=== PATIENT | male | born 1950 | race Caucasian/White ===

== ENCOUNTER 2019-10-02 05:48 | Inpatient (IN) | payer MEDICARE ==
[2019-10-02] MEDS ORDERED: ONDANSETRON HCL INJ/PF 4 MG/2 ML SDV IV ONE (06:19)
[2019-10-02] MEDS ORDERED: NORMAL SALINE 1000 ML 1,000 ML IV ONE ×3 (06:19→08:06)
[2019-10-02 06:42] LABS: ALBUMIN 4.6 g/dL (3.5-5.0); ALKALINE PHOSPHATASE 116 U/L (38-126); ASPARTATE AMINO TRANSFERASE 24 U/L (17-59); BILIRUBIN,DIRECT 0.2 mg/dL (0.0-0.4); BILIRUBIN,TOTAL 0.8 mg/dL (0.2-1.3); BLOOD UREA NITROGEN 37 mg/dL (7-20); CARBON DIOXIDE 17 mmol/L (22-30); CHLORIDE 94 mmol/L (98-107); CREATINE KINASE 305 U/L (55-170); POTASSIUM 5.2 mmol/L (3.6-5.0); TOTAL PROTEIN 8.1 g/dL (6.3-8.2)
[2019-10-02 06:46] LABS: ABSOLUTE BASOPHILS # (AUTO) 0.1 10^3/uL (0.0-0.2); ABSOLUTE LYMPHOCYTES (AUTO) 1.5 10^3/uL (0.5-4.7); ABSOLUTE MONOCYTES (AUTO) 1.4 10^3/uL (0.1-1.4); ABSOLUTE NEUT (AUTO) 13.9 10^3/uL (1.7-8.2); BASOPHILS % (AUTO) 0.5 % (0-2); HEMATOCRIT 48.6 % (37.9-51.0); HEMOGLOBIN 16.9 g/dL (13.5-17.0); LYMPHOCYTES % (AUTO) 8.9 % (13-45); MEAN CORPUSCULAR HEMOGLOBIN 31.3 pg (27.0-33.4); MEAN CORPUSCULAR HGB CONC 34.9 g/dL (32.0-36.0); MEAN CORPUSCULAR VOLUME 90 fl (80-97); MONOCYTES % (AUTO) 8.5 % (3-13); PLATELET COUNT 214 10^3/uL (150-450); RED BLOOD COUNT 5.42 10^6/uL (4.35-5.55); RED CELL DISTRIBUTION WIDTH 15.5 % (11.5-14.0); SEGMENTED NEUTROPHILS % (AUTO) 82.1 % (42-78); TOTAL CELLS COUNTED % (AUTO) 100 %
[2019-10-02 06:55] LABS: ANION GAP 26 (5-19)
[2019-10-02] MEDS ORDERED: INSULIN REG, HUMAN 100 UNIT/ML 3 ML VIAL (PYX) IV ONE (06:55)
[2019-10-02 06:56] LABS: GLUCOSE 468 mg/dL (75-110)
--- NOTE | 2019-10-02 07:28 | RADIOLOGY REPORT (SQ) ---
EXAM DESCRIPTION: CT HEAD WITHOUT IV CONTRAST COMPLETED DATE/TME: 10/02/2019 06:19 CLINICAL HISTORY: AMS. BGL 531 COMPARISON: None available TECHNIQUE: Axial CT of the head obtained from the skull apex to the skull base without contrast. FINDINGS: No acute intracranial hemorrhage identified. No mass, mass effect, shift of the midline, abnormal extra-axial fluid collection or CT evidence of acute ischemic change identified. The ventricular system and sulcal spaces are mildly enlarged compatible with mild cerebral atrophy. Scattered areas of hypodensity throughout the supratentorial white matter are nonspecific and may be related to chronic small vessel ischemic change. The visualized paranasal sinuses and the mastoids are clear. No skull fracture identified. Visualized orbits and globes are unremarkable. Atherosclerotic calcification of the intracranial internal carotid arteries. IMPRESSION: 1. No acute intracranial abnormality by CT criteria. This exam was performed according to our departmental dose-optimization program, which includes automated exposure control, adjustment of the mA and/or kV according to patient size and/or use of iterative reconstruction technique.
--- NOTE | 2019-10-02 08:12 | ER Document Report ---
ED General - General Chief Complaint: Low Back Pain Stated Complaint: BACK PAIN/VOMITING Time Seen by Provider: 10/02/19 06:01 Mode of Arrival: Medic Information source: Patient - HPI Notes: Patient presents by ambulance. Ambulance was called because patient was found down in his bedroom. Patient states that he fell approximately 4 days ago and is been unable to get up. The medic crew did state they found multiple jars of urine in the room. On arrival patient was noticed to also have some stool on him. He states he is not sure why he was unable to get up. He denies any vomiting. He states he has some pain in the right flank but otherwise denies any pain. This pain is constant and mild to moderate. It is an aching sensation. It is worse with touch summative left alone. It radiates slightly around to the right hip. He denies any extremity issues. He denies any cough cold congestion or fevers. He states he is not sure why he fell or why he was unable to get off the floor. - Related Data Allergies/Adverse Reactions: No Known Allergies Allergy (Verified 10/02/19 07:14) Past Medical History - General Information source: Patient - Social History Smoking Status: Former Smoker Frequency of alcohol use: None Drug Abuse: None Family History: Reviewed & Not Pertinent Patient has homicidal ideation: No Endocrine Medical History: Reports: Hx Diabetes Mellitus Type 2 Review of Systems - Review of Systems Constitutional: Malaise, Weakness. denies: Chills, Fever Cardiovascular: denies: Chest pain, Palpitations Respiratory: denies: Cough, Short of breath -: Yes All other systems reviewed and negative Physical Exam - Vital signs Vitals: Temp 97.5 F 10/02/19 05:49 Interpretation: Normal - General General appearance: Appears well, Alert - HEENT Head: Normocephalic, Atraumatic Eyes: Normal Pupils: PERRL - Respiratory Respiratory status: No respiratory distress Chest status: Nontender Breath sounds: Normal Chest palpation: Normal - Cardiovascular Rhythm: Regular Heart sounds: Normal auscultation Murmur: No - Abdominal Inspection: Normal Distension: No distension Bowel sounds: Normal Tenderness: Nontender Organomegaly: No organomegaly - Back Back: Tender, Wounds, Other - Patient has some tender abraded areas on the right flank - Extremities General upper extremity: Normal inspection, Nontender, Normal color, Normal ROM, Normal temperature General lower extremity: Normal inspection, Nontender, Normal color, Normal ROM, Normal temperature, Normal weight bearing. No: William's sign - Neurological Neuro grossly intact: Yes Cognition: Normal Orientation: AAOx4 Mk Coma Scale Eye Opening: Spontaneous Mk Coma Scale Verbal: Oriented [place] Coma Scale Motor: Obeys Commands [place] Coma Scale Total: 15 Speech: Normal Sensory: Normal Notes: Patient moves all extremities. However when I tried to ambulate patient he was unable to get out of bed to bear weight. He states that he feels too weak. - Psychological Associated symptoms: Normal affect, Normal mood - Skin Skin Temperature: Warm Skin Moisture: Dry Skin Color: Other - Patient has multiple abrasions on the right flank Course - Re-evaluation Re-evalutation: 10/02/19 08:10 Patient presents after being found down. CPK is not significantly elevated. He does appear moderately dehydrated. This is borne out by a high BUN creatinine and a slightly elevated potassium. He also has elevated glucose. His anion gap and bicarb are slightly down signifying some mild to moderate diabetic ketoacidosis. I have given the patient 2 L of fluid and am starting the third. I have also given the patient insulin. I have held off on an insulin drip for now as I thought the patient may be able to correct the gap without starting a drip but we will monitor this closely. - Vital Signs Vital signs: Temp Pulse Resp BP Pulse Ox 97.5 F 20 147/81 H 94 10/02/19 06:01 10/02/19 07:06 10/02/19 07:06 10/02/19 07:06 - Laboratory Result Diagrams: 10/02/19 06:10 10/02/19 06:10 Laboratory results interpreted by me: 10/02/19 10/02/19 10/02/19 06:04 06:10 06:10 WBC 17.0 H RDW 15.5 H Lymph % (Auto) 8.9 L Absolute Neuts (auto) 13.9 H Seg Neutrophils % 82.1 H Sodium 136.9 L Potassium 5.2 H Chloride 94 L Carbon Dioxide 17 L Anion Gap 26 H BUN 37 H Creatinine 1.79 H Est GFR ( Amer) 46 L Est GFR (MDRD) Non-Af 38 L Glucose 468 H* POC Glucose 449 H* Creatine Kinase 305 H 10/02/19 07:33 WBC RDW Lymph % (Auto) Absolute Neuts (auto) Seg Neutrophils % Sodium Potassium Chloride Carbon Dioxide Anion Gap BUN Creatinine Est GFR ( Amer) Est GFR (MDRD) Non-Af Glucose POC Glucose 430 H* Creatine Kinase - Diagnostic Test Radiology reviewed: Image reviewed, Reports reviewed - EKG Interpretation by Me EKG shows normal: Sinus rhythm Rate: Normal - 99 Rhythm: NSR Brickeys/QRS: No: Right axis deviation, Left axis deviation Discharge - Discharge Clinical Impression: Abrasions of multiple sites DKA (diabetic ketoacidoses) Qualifiers: Diabetes mellitus type: type 1 Diabetes mellitus complication detail: without coma Qualified Code(s): E10.10 - Type 1 diabetes mellitus with ketoacidosis without coma Condition: Serious Disposition: ADMITTED INPATIENT Admitting Provider: Florencio (Hospitalist) Unit Admitted: Medical Floor
[2019-10-02 08:20] LABS: ADD MANUAL MICROSCOPIC YES; APPEARANCE,URINE CLEAR; BILIRUBIN,URINE NEGATIVE (NEGATIVE); COLOR,URINE YELLOW; GLUCOSE, URINE >=1000 mg/dL (NEGATIVE); KETONES,URINE 300 mg/dL (NEGATIVE); LEUKOCYTE ESTERASE,URINE NEGATIVE (NEGATIVE); NITRITE,URINE NEGATIVE (NEGATIVE); PROTEIN,URINE 30 mg/dL (NEGATIVE); URINE SPECIFIC GRAVITY 1.027; UROBILINOGEN,URINE NEGATIVE mg/dL (<2.0)
[2019-10-02 08:21] LABS: WBC,URINE NONE SEEN /HPF
--- NOTE | 2019-10-02 08:39 | EKG REPORT ---
SEVERITY:- ABNORMAL ECG - SINUS RHYTHM NONSPECIFIC INTRAVENTRICULAR CONDUCTION DELAY : Confirmed by: Rex Mcdaniel 02-Oct-2019 08:39:13
[2019-10-02] MEDS ORDERED: IPRATROPIUM/ALBUTEROL 0.5-2.5 MG/3 ML AMPUL NEB PRN (08:48)
[2019-10-02] MEDS ORDERED: ONDANSETRON 4 MG TAB.RAPDIS PO PRN (08:48)
[2019-10-02] MEDS ORDERED: ACETAMINOPHEN 325 MG TABLET PO PRN (08:48)
[2019-10-02] MEDS ORDERED: DEXTROSE 40% GEL 15 GM TUBE PO PRN ×2 (08:48)
[2019-10-02] MEDS ORDERED: GLUCAGON,HUMAN RECOMB 1 MG INJ IM PRN (08:48)
[2019-10-02] MEDS ORDERED: OXYCODONE-ACETAMINOPHEN 5-325 MG TABLET PO PRN (08:48)
[2019-10-02] MEDS ORDERED: TEMAZEPAM 7.5 MG CAPSULE PO PRN (08:48)
[2019-10-02] MEDS ORDERED: DEXTROSE 50%-WATER 25 GM/50 ML DISP.SYRIN IV PRN ×2 (08:48)
--- NOTE | 2019-10-02 09:16 | PDOC H&P ---
History of Present Illness Admission Date/PCP: 10/02/19 08:28 Patient complains of: Falling 4 days ago and unable to get up History of Present Illness: ANTONIO SOLORIO is a 69 year old male Who presents to the emergency room with complaints of having falling about 4 days ago and is unable to get up. He states he lives with his brother however he did not contact his brother nor was a found until he called out to his brother today according to the patient. Patient did seem to be awake alert and oriented. Denies any loss of consciousness. He said he just felt weak and could not get up after falling. There is no head trauma. No nausea vomiting or diarrhea. He apparently was found in an unhealthy environment by EMS. He denies any chest pain abdominal pain or any other pertinent symptoms. Woke up to find the emergency room has really revealed a leukocytosis, hyperglycemia and very minimal rhabdomyolysis. He states that he obviously has not used his insulin since he fell. Patient also tells me that he moved here from [facility] about 2 years ago. He has not been hospitalized in this area since then. He says he normally manages by himself, ambulating the aid of a walker appears to be self- sufficient. He does have a dysarthria but denies any prior stroke he really was unable to provide any further medical insight except for the fact that he has diabetes. Past Medical History Endocrine Medical History: Reports: Diabetes Mellitus Type 2 Past Surgical History Past Surgical History: Reports: None Social History Information Source: Patient Smoking Status: Former Smoker Frequency of Alcohol Use: None - Advance Directive Resuscitation Status: Full Code Family History Family History: None, Reviewed & Not Pertinent Parental Family History Reviewed: Yes Children Family History Reviewed: Yes Sibling(s) Family History Reviewed.: Yes Medication/Allergy Allergies/Adverse Reactions: No Known Allergies Allergy (Verified 10/02/19 07:14) Review of Systems All systems: reviewed and no additional remarkable complaints except as stated Cardiovascular: ABSENT: chest pain, dyspnea on exertion, palpitations Respiratory: ABSENT: cough, dyspnea Gastrointestinal: ABSENT: abdominal pain, coffee ground emesis, diarrhea, vomiting Genitourinary: ABSENT: difficulty urinating, dysuria Neurological: PRESENT: weakness. ABSENT: convulsions, frequent falls Endocrine: ABSENT: polyphagia, polyuria Physical Exam Vital Signs: Temp Pulse Resp BP Pulse Ox 97.5 F 17 147/78 H 94 10/02/19 06:01 10/02/19 08:01 10/02/19 08:00 10/02/19 08:01 Intake & Output 10/01/19 10/02/19 10/03/19 06:59 06:59 06:59 Intake Total 1999 Balance 1999 Weight 99.7 kg General appearance: PRESENT: no acute distress, other - Somewhat chronically ill looking but not toxic Head exam: PRESENT: atraumatic, normocephalic Eye exam: PRESENT: conjunctiva pink, EOMI, PERRLA. ABSENT: scleral icterus Mouth exam: PRESENT: tongue midline Neck exam: ABSENT: carotid bruit, JVD, lymphadenopathy, thyromegaly Respiratory exam: PRESENT: clear to auscultation sunitha, unlabored. ABSENT: rales, rhonchi, wheezes Cardiovascular exam: PRESENT: RRR, +S1, +S2. ABSENT: diastolic murmur, rubs, systolic murmur Pulses: PRESENT: normal dorsalis pedis pul Vascular exam: PRESENT: normal capillary refill GI/Abdominal exam: PRESENT: normal bowel sounds, soft. ABSENT: distended, guarding, mass, organolmegaly, rebound, tenderness Rectal exam: PRESENT: deferred Gentrourinary exam: PRESENT: indwelling catheter. ABSENT: scrotal swelling Extremities exam: PRESENT: full ROM. ABSENT: calf tenderness, clubbing, pedal edema Musculoskeletal exam: PRESENT: full ROM Neurological exam: PRESENT: alert, awake, oriented to person, oriented to place, oriented to time, oriented to situation, other - Slow verbal response with mild dysarthria. ABSENT: motor sensory deficit Psychiatric exam: PRESENT: appropriate affect, normal mood. ABSENT: homicidal ideation, suicidal ideation Skin exam: PRESENT: dry, intact, rash - Bilateral lower extremities chronic, warm. ABSENT: cyanosis Results Laboratory Results: 10/02/19 06:10 10/02/19 06:10 10/02/19 10/02/19 10/02/19 06:10 06:10 07:40 WBC 17.0 H RBC 5.42 Hgb 16.9 Hct 48.6 MCV 90 MCH 31.3 MCHC 34.9 RDW 15.5 H Plt Count 214 Seg Neutrophils % 82.1 H Sodium 136.9 L Potassium 5.2 H Chloride 94 L Carbon Dioxide 17 L Anion Gap 26 H BUN 37 H Creatinine 1.79 H Est GFR ( Amer) 46 L Glucose 468 H* Calcium 10.0 Total Bilirubin 0.8 AST 24 Alkaline Phosphatase 116 Total Protein 8.1 Albumin 4.6 Urine Color YELLOW Urine Appearance CLEAR Urine pH 5.0 Ur Specific Calvin 1.027 Urine Protein 30 H Urine Glucose (UA) >=1000 H Urine Ketones 300 H Urine Blood MODERATE H Urine Nitrite NEGATIVE Ur Leukocyte Esterase NEGATIVE 10/02/19 10/02/19 06:10 06:10 Creatine Kinase 305 H Troponin I < 0.012 EKG Comments: Sinus rhythm with no acute EKG changes Impressions: Head CT 10/02/19 06:19 IMPRESSION: 1. No acute intracranial abnormality by CT criteria. This exam was performed according to our departmental dose-optimization program, which includes automated exposure control, adjustment of the mA and/or kV according to patient size and/or use of iterative reconstruction technique. Assessment and Plan - Diagnosis (1) DKA (diabetic ketoacidoses) Qualifiers: Diabetes mellitus type: type 2 Diabetes mellitus complication detail: without coma Qualified Code(s): E11.10 - Type 2 diabetes mellitus with ketoacidosis without coma Is this a current diagnosis for this admission?: Yes Plan: Patient does have a mild acidosis, with hyperglycemia in the setting of type 2 diabetes mellitus. Does admit to not using his insulin obviously because he was down. Patient was given insulin IV in the emergency room and at this point I will just place him on sliding scale with some Lantus. We will repeat his BMP in a few hours and adjust his regimen as indicated (2) SIRS (systemic inflammatory response syndrome) Is this a current diagnosis for this admission?: Yes Plan: He does have a leukocytosis however I see no evidence of an acute infection at this time. A chest x-ray will be obtained but clinical exam reveals no evidence of pneumonia. I will defer starting on any antibiotics as of now. Urinalysis was negative (3) Hyperkalemia Is this a current diagnosis for this admission?: Yes Plan: This is consistent with his DKA. This should resolve with treatment - Plan Summary Summary: He will likely need physical therapy and possible rehabilitation but will wait for improvement before starting PT hopefully in a.m. - Time Time Spent with patient: 25-34 minutes Medications reviewed and adjusted accordingly: Yes Anticipated discharge: SNF Within: within 72 hours
[2019-10-02] MEDS ORDERED: FAMOTIDINE 20 MG TABLET PO SCH (10:00)
[2019-10-02] MEDS ORDERED: INSULIN GLARGINE,HUM.REC.ANLOG 1,000 UNIT/10 ML VIAL SUBCUT SCH (10:00)
[2019-10-02] MEDS: DOCUSATE SODIUM 100 MG CAPSULE PO SCH (10:06)
[2019-10-02] MEDS: ENOXAPARIN SODIUM INJ 40 MG/0.4 ML DISP.SYRIN SUBCUT SCH (10:07)
[2019-10-02] MEDS: FAMOTIDINE 20 MG TABLET PO SCH (10:07)
[2019-10-02] MEDS: NORMAL SALINE 1000 ML 1,000 ML IV PRN ×2 (10:09→18:00)
--- NOTE | 2019-10-02 10:48 | RADIOLOGY REPORT (SQ) ---
EXAM DESCRIPTION: CHEST SINGLE VIEW IMAGES COMPLETED DATE/TIME: 10/02/2019 10:17 am REASON FOR STUDY: Fall, ?PNA COMPARISON: None. EXAM PARAMETERS: NUMBER OF VIEWS: One view. TECHNIQUE: An AP view of the chest was obtained. RADIATION DOSE: NA LIMITATIONS: None. FINDINGS: LUNGS AND PLEURA: No consolidation, pleural effusion or pneumothorax. MEDIASTINUM AND HILAR STRUCTURES: No mediastinal or hilar contour abnormality. HEART AND VASCULAR STRUCTURES: The cardiac silhouette and pulmonary vasculature are within normal gregorio its. BONES: No acute findings. HARDWARE: None in the chest. OTHER: No other finding. IMPRESSION: No acute cardiopulmonary process. TECHNICAL DOCUMENTATION: JOB ID: [id number] 2010 [employer]- All Rights Reserved Reading location - IP/workstation name: [email or web address]
[2019-10-02] MEDS: INSULIN REG, HUMAN 100 UNIT/ML 3 ML VIAL (PYX) SUBCUT SCH ×3 (12:04→21:43)
[2019-10-02 14:16] LABS: BLOOD UREA NITROGEN 33 mg/dL (7-20); CALCIUM 8.8 mg/dL (8.4-10.2); GLUCOSE 336 mg/dL (75-110); POTASSIUM 4.8 mmol/L (3.6-5.0)
[2019-10-02 14:18] LABS: ANION GAP 21 (5-19); CARBON DIOXIDE 13 mmol/L (22-30); CHLORIDE 104 mmol/L (98-107)
[2019-10-02] MEDS ORDERED: INSULIN LISPRO 100 UNIT/ML 3 ML VIAL SUBCUT ONE (17:00)
[2019-10-02] MEDS: DOXAZOSIN MESYLATE 2 MG TABLET PO SCH (21:41)
[2019-10-02] MEDS: SIMVASTATIN 40 MG TABLET PO SCH (21:41)
[2019-10-02] MEDS: GABAPENTIN 100 MG CAPSULE PO SCH (21:41)
[2019-10-02] MEDS: INSULIN GLARGINE,HUM.REC.ANLOG 1,000 UNIT/10 ML VIAL SUBCUT SCH (21:42)
[2019-10-02 21:48] LABS: ANION GAP 16 (5-19); BLOOD UREA NITROGEN 27 mg/dL (7-20); CALCIUM 8.3 mg/dL (8.4-10.2); CARBON DIOXIDE 15 mmol/L (22-30); CHLORIDE 105 mmol/L (98-107); GLUCOSE 185 mg/dL (75-110); POTASSIUM 4.6 mmol/L (3.6-5.0)
[2019-10-02] MEDS ORDERED: (PENDING PHARMACY ID) (Terazosin Hcl [Terazosin Hcl] 2 MG) PO SCH (22:00)
[2019-10-03] MEDS: NORMAL SALINE 1000 ML 1,000 ML IV PRN ×3 (02:13→23:16)
[2019-10-03 06:55] LABS: ABSOLUTE BASOPHILS # (AUTO) 0.1 10^3/uL (0.0-0.2); ABSOLUTE EOSINOPHILS # (AUTO) 0.3 10^3/uL (0.0-0.6); ABSOLUTE LYMPHOCYTES (AUTO) 1.4 10^3/uL (0.5-4.7); ABSOLUTE MONOCYTES (AUTO) 1.3 10^3/uL (0.1-1.4); ABSOLUTE NEUT (AUTO) 9.8 10^3/uL (1.7-8.2); BASOPHILS % (AUTO) 0.7 % (0-2); HEMATOCRIT 38.5 % (37.9-51.0); LYMPHOCYTES % (AUTO) 10.8 % (13-45); MEAN CORPUSCULAR HEMOGLOBIN 31.6 pg (27.0-33.4); MEAN CORPUSCULAR HGB CONC 35.7 g/dL (32.0-36.0); MEAN CORPUSCULAR VOLUME 88 fl (80-97); MONOCYTES % (AUTO) 10.5 % (3-13); PLATELET COUNT 163 10^3/uL (150-450); RED BLOOD COUNT 4.35 10^6/uL (4.35-5.55); TOTAL CELLS COUNTED % (AUTO) 100 %; WHITE BLOOD COUNT 12.8 10^3/uL (4.0-10.5)
[2019-10-03 06:57] LABS: HEMOGLOBIN 13.8 g/dL (13.5-17.0)
[2019-10-03 07:15] LABS: ANION GAP 12 (5-19); BLOOD UREA NITROGEN 20 mg/dL (7-20); CALCIUM 8.1 mg/dL (8.4-10.2); CARBON DIOXIDE 19 mmol/L (22-30); CHLORIDE 106 mmol/L (98-107); GLUCOSE 142 mg/dL (75-110); PHOSPHORUS 2.7 mg/dL (2.5-4.5); POTASSIUM 3.9 mmol/L (3.6-5.0)
[2019-10-03] MEDS: INSULIN REG, HUMAN 100 UNIT/ML 3 ML VIAL (PYX) SUBCUT SCH ×4 (07:35→21:20)
[2019-10-03] MEDS: ENOXAPARIN SODIUM INJ 40 MG/0.4 ML DISP.SYRIN SUBCUT SCH (09:29)
[2019-10-03] MEDS: INSULIN GLARGINE,HUM.REC.ANLOG 1,000 UNIT/10 ML VIAL SUBCUT SCH ×2 (09:29→21:24)
[2019-10-03] MEDS: DOCUSATE SODIUM 100 MG CAPSULE PO SCH (09:30)
[2019-10-03] MEDS: AMLODIPINE BESYLATE 10 MG TABLET PO SCH (09:30)
[2019-10-03] MEDS: ATENOLOL 50 MG TABLET PO SCH (09:30)
[2019-10-03] MEDS: FAMOTIDINE 20 MG TABLET PO SCH (09:30)
[2019-10-03] MEDS: ASPIRIN 81 MG TABLET, CHEWABLE PO SCH (09:30)
[2019-10-03] MEDS: GABAPENTIN 100 MG CAPSULE PO SCH ×2 (09:31→21:11)
[2019-10-03] MEDS: LISINOPRIL 5 MG TABLET PO SCH (09:31)
[2019-10-03] MEDS: CALCIUM CARBONATE 600 MG/VITAMIN D3 400 UNIT TABLET PO SCH (09:31)
[2019-10-03] MEDS: CHOLECALCIFEROL (D3) 1,000 UNIT (25 MCG) TABLET PO SCH (09:31)
[2019-10-03] MEDS ORDERED: (PENDING PHARMACY ID) (Calcium Carbonate/Vitamin D3 [Calcium 500-Vit D3 200 Caplet] 1 TAB) PO SCH (10:00)
[2019-10-03] MEDS ORDERED: (PENDING PHARMACY ID) (Cholecalciferol (Vitamin D3) [Vitamin D3] 1,000 UNIT) PO SCH (10:00)
[2019-10-03] MEDS ORDERED: (PENDING PHARMACY ID) (Atenolol [Atenolol] 100 MG) PO SCH (10:00)
[2019-10-03] MEDS ORDERED: ONDANSETRON 4 MG TAB.RAPDIS PO PRN (11:00)
--- NOTE | 2019-10-03 11:44 | PDOC PROGRESS REPORT ---
Subjective Progress Note for:: 10/03/19 Subjective:: Patient is somewhat lethargic but easily arousable and he responds appropriately to questions. He did have a CT scan of the brain done yesterday which showed no significant findings. Blood sugar is better controlled also_check of the random blood sugar today was 193 Reason For Visit: HYPERGLYCEMIA,FALL Physical Exam Vital Signs: Temp Pulse Resp BP Pulse Ox 98.1 F 76 16 125/57 L 93 10/03/19 07:19 10/03/19 09:24 10/03/19 09:24 10/03/19 07:19 10/03/19 09:24 Intake & Output 10/02/19 10/03/19 10/04/19 06:59 06:59 06:59 Intake Total 5776 Balance 5776 Weight 99.7 kg 100 kg General appearance: PRESENT: no acute distress, well-developed, well-nourished Head exam: PRESENT: atraumatic, normocephalic Eye exam: PRESENT: conjunctiva pink, EOMI, PERRLA. ABSENT: scleral icterus Mouth exam: PRESENT: tongue midline Neck exam: ABSENT: carotid bruit, JVD, lymphadenopathy, thyromegaly Respiratory exam: PRESENT: clear to auscultation sunitha, unlabored. ABSENT: rales, rhonchi, wheezes Cardiovascular exam: PRESENT: RRR. ABSENT: diastolic murmur, rubs, systolic murmur Pulses: PRESENT: normal dorsalis pedis pul Vascular exam: PRESENT: normal capillary refill GI/Abdominal exam: PRESENT: normal bowel sounds, soft. ABSENT: distended, guarding, mass, organolmegaly, rebound, tenderness Rectal exam: PRESENT: deferred Extremities exam: PRESENT: full ROM. ABSENT: calf tenderness, clubbing, pedal edema Neurological exam: PRESENT: oriented to place, oriented to time, oriented to situation, other - Lethargic but easily arousable mild dysarthria Psychiatric exam: PRESENT: appropriate affect, normal mood. ABSENT: homicidal ideation, suicidal ideation Skin exam: PRESENT: dry, intact, warm. ABSENT: cyanosis, rash Results Laboratory Results: 10/03/19 06:34 10/03/19 06:34 10/02/19 10/02/19 10/03/19 13:40 21:15 06:34 WBC 12.8 H RBC 4.35 Hgb 13.8 D Hct 38.5 MCV 88 MCH 31.6 MCHC 35.7 RDW 15.0 H Plt Count 163 Seg Neutrophils % 76.0 Sodium 138.2 135.8 L Potassium 4.8 4.6 Chloride 104 105 Carbon Dioxide 13 L 15 L Anion Gap 21 H 16 BUN 33 H 27 H Creatinine 1.32 H 1.13 Est GFR ( Amer) > 60 > 60 Glucose 336 H 185 H Calcium 8.8 8.3 L Phosphorus Magnesium TSH 10/03/19 10/03/19 06:34 06:34 WBC RBC Hgb Hct MCV MCH MCHC RDW Plt Count Seg Neutrophils % Sodium 136.8 L Potassium 3.9 Chloride 106 Carbon Dioxide 19 L Anion Gap 12 BUN 20 Creatinine 1.11 Est GFR ( Amer) > 60 Glucose 142 H Calcium 8.1 L Phosphorus 2.7 Magnesium 2.3 TSH 0.74 10/02/19 10/02/19 06:10 06:10 Creatine Kinase 305 H Troponin I < 0.012 Impressions: Head CT 10/02/19 06:19 IMPRESSION: 1. No acute intracranial abnormality by CT criteria. This exam was performed according to our departmental dose-optimization program, which includes automated exposure control, adjustment of the mA and/or kV according to patient size and/or use of iterative reconstruction technique. Chest X-Ray 10/02/19 08:58 IMPRESSION: No acute cardiopulmonary process. Assessment and Plan - Diagnosis (1) DKA (diabetic ketoacidoses) Qualifiers: Diabetes mellitus type: type 2 Diabetes mellitus complication detail: [facility] coma Qualified Code(s): E11.10 - Type 2 diabetes mellitus with ketoacidosis without coma Is this a current diagnosis for this admission?: Yes Plan: Resolved. Will continue with IV fluids although I will reduce the dose. We will continue with subcu insulin Hemoglobin A1c was 13.9 reflecting a poorly controlled type 2 diabetes mellitus. (2) SIRS (systemic inflammatory response syndrome) Is this a current diagnosis for this admission?: Yes Plan: White count is down to 12.7. There is still no source of any specific infection. Patient is on no antibiotics (3) Hyperkalemia Is this a current diagnosis for this admission?: Yes Plan: Resolved - Plan Summary Summary: Physical therapy has been ordered. Patient will likely need rehab at discharge so case management will also be consulted - Inpatient Certification Based on my medical assessment, after consideration of the patient's comorbidities, presenting symptoms, or acuity I expect that the services needed warrant INPATIENT care.: Yes Medical Necessity: Significant Comorbidiites Make Outpatient Treatment Too Risky, Risk of Complication if Not Cared For in Hospital
[2019-10-03] MEDS: DOXAZOSIN MESYLATE 2 MG TABLET PO SCH (21:10)
[2019-10-03] MEDS: SIMVASTATIN 40 MG TABLET PO SCH (21:10)
[2019-10-04 06:11] LABS: ABSOLUTE BASOPHILS # (AUTO) 0.1 10^3/uL (0.0-0.2); ABSOLUTE EOSINOPHILS # (AUTO) 0.5 10^3/uL (0.0-0.6); ABSOLUTE LYMPHOCYTES (AUTO) 1.1 10^3/uL (0.5-4.7); ABSOLUTE NEUT (AUTO) 7.9 10^3/uL (1.7-8.2); BASOPHILS % (AUTO) 1.1 % (0-2); EOSINOPHILS % (AUTO) 4.8 % (0-6); HEMATOCRIT 36.6 % (37.9-51.0); HEMOGLOBIN 13.3 g/dL (13.5-17.0); LYMPHOCYTES % (AUTO) 10.5 % (13-45); MEAN CORPUSCULAR HGB CONC 36.3 g/dL (32.0-36.0); MEAN CORPUSCULAR VOLUME 88 fl (80-97); MONOCYTES % (AUTO) 9.6 % (3-13); PLATELET COUNT 131 10^3/uL (150-450); RED BLOOD COUNT 4.15 10^6/uL (4.35-5.55); RED CELL DISTRIBUTION WIDTH 15.1 % (11.5-14.0); TOTAL CELLS COUNTED % (AUTO) 100 %; WHITE BLOOD COUNT 10.7 10^3/uL (4.0-10.5)
[2019-10-04 06:33] LABS: ANION GAP 12 (5-19); BLOOD UREA NITROGEN 16 mg/dL (7-20); CALCIUM 7.9 mg/dL (8.4-10.2); CARBON DIOXIDE 18 mmol/L (22-30); CHLORIDE 106 mmol/L (98-107); GLUCOSE 184 mg/dL (75-110); POTASSIUM 3.7 mmol/L (3.6-5.0)
[2019-10-04] MEDS: INSULIN REG, HUMAN 100 UNIT/ML 3 ML VIAL (PYX) SUBCUT SCH ×4 (07:50→23:36)
[2019-10-04] MEDS: CHOLECALCIFEROL (D3) 1,000 UNIT (25 MCG) TABLET PO SCH (11:31)
[2019-10-04] MEDS: INSULIN GLARGINE,HUM.REC.ANLOG 1,000 UNIT/10 ML VIAL SUBCUT SCH ×2 (11:31→23:36)
[2019-10-04] MEDS: FAMOTIDINE 20 MG TABLET PO SCH (11:31)
[2019-10-04] MEDS: ENOXAPARIN SODIUM INJ 40 MG/0.4 ML DISP.SYRIN SUBCUT SCH (11:31)
[2019-10-04] MEDS: CALCIUM CARBONATE 600 MG/VITAMIN D3 400 UNIT TABLET PO SCH (11:31)
[2019-10-04] MEDS: ASPIRIN 81 MG TABLET, CHEWABLE PO SCH (11:31)
[2019-10-04] MEDS: DOCUSATE SODIUM 100 MG CAPSULE PO SCH (11:31)
[2019-10-04] MEDS: GABAPENTIN 100 MG CAPSULE PO SCH ×2 (11:31→23:37)
--- NOTE | 2019-10-04 14:08 | PDOC PROGRESS REPORT ---
Subjective Progress Note for:: 10/04/19 Subjective:: Patient was rude and uncooperative today. I try to ask him some questions but did not provide any satisfactory answer Reason For Visit: HYPERGLYCEMIA,FALL Physical Exam Vital Signs: Temp Pulse Resp BP Pulse Ox 98.2 F 59 L 16 96/42 L 94 10/04/19 11:18 10/04/19 11:18 10/04/19 11:18 10/04/19 11:18 10/04/19 11:18 Intake & Output 10/03/19 10/04/19 10/05/19 06:59 06:59 06:59 Intake Total 5776 2220 120 Output Total 500 Balance 5776 1720 120 Weight 100 kg 100 kg General appearance: PRESENT: no acute distress Neck exam: ABSENT: JVD, tenderness Respiratory exam: PRESENT: clear to auscultation sunitha, rhonchi GI/Abdominal exam: PRESENT: soft Rectal exam: PRESENT: deferred Psychiatric exam: ABSENT: appropriate affect Results Laboratory Results: 10/04/19 05:25 10/04/19 05:25 10/04/19 10/04/19 05:25 05:25 WBC 10.7 H RBC 4.15 L Hgb 13.3 L Hct 36.6 L MCV 88 MCH 32.0 MCHC 36.3 H RDW 15.1 H Plt Count 131 L Seg Neutrophils % 74.0 Sodium 135.9 L Potassium 3.7 Chloride 106 Carbon Dioxide 18 L Anion Gap 12 BUN 16 Creatinine 0.99 Est GFR ( Amer) > 60 Glucose 184 H Calcium 7.9 L 10/02/19 10/02/19 06:10 06:10 Creatine Kinase 305 H Troponin I < 0.012 Impressions: Head CT 10/02/19 06:19 IMPRESSION: 1. No acute intracranial abnormality by CT criteria. This exam was performed according to our departmental dose-optimization program, which includes automated exposure control, adjustment of the mA and/or kV according to patient size and/or use of iterative reconstruction technique. Chest X-Ray 10/02/19 08:58 IMPRESSION: No acute cardiopulmonary process. Assessment and Plan - Diagnosis (1) DKA (diabetic ketoacidoses) Qualifiers: Diabetes mellitus type: type 2 Diabetes mellitus complication detail: without coma Qualified Code(s): E11.10 - Type 2 diabetes mellitus with ketoacidosis without coma Is this a current diagnosis for this admission?: Yes Plan: Resolved (2) SIRS (systemic inflammatory response syndrome) Is this a current diagnosis for this admission?: Yes Plan: White count continues to decline. Still no evidence of any infection. Is on no antibiotics (3) Hyperkalemia Is this a current diagnosis for this admission?: Yes Plan: Resolved - Plan Summary Summary: Plan is for discharge to halfway facility as soon as a bed is available. A COVID 19 test has been ordered preparation for [facility] discharge
[2019-10-04] MEDS: AMLODIPINE BESYLATE 10 MG TABLET PO SCH (15:07)
[2019-10-04] MEDS: ATENOLOL 50 MG TABLET PO SCH (16:54)
[2019-10-04] MEDS: LISINOPRIL 5 MG TABLET PO SCH (16:54)
[2019-10-04] MEDS: SIMVASTATIN 40 MG TABLET PO SCH (23:37)
[2019-10-04] MEDS: DOXAZOSIN MESYLATE 2 MG TABLET PO SCH (23:37)
[2019-10-05] MEDS: NORMAL SALINE 1000 ML 1,000 ML IV PRN (07:05)
[2019-10-05] MEDS: INSULIN REG, HUMAN 100 UNIT/ML 3 ML VIAL (PYX) SUBCUT SCH ×4 (07:52→22:12)
[2019-10-05] MEDS: ATENOLOL 50 MG TABLET PO SCH (10:59)
[2019-10-05] MEDS: CHOLECALCIFEROL (D3) 1,000 UNIT (25 MCG) TABLET PO SCH (10:59)
[2019-10-05] MEDS: ENOXAPARIN SODIUM INJ 40 MG/0.4 ML DISP.SYRIN SUBCUT SCH (10:59)
[2019-10-05] MEDS: GABAPENTIN 100 MG CAPSULE PO SCH ×2 (10:59→22:11)
[2019-10-05] MEDS: CALCIUM CARBONATE 600 MG/VITAMIN D3 400 UNIT TABLET PO SCH (10:59)
[2019-10-05] MEDS: LISINOPRIL 5 MG TABLET PO SCH (10:59)
[2019-10-05] MEDS: ASPIRIN 81 MG TABLET, CHEWABLE PO SCH (10:59)
[2019-10-05] MEDS: DOCUSATE SODIUM 100 MG CAPSULE PO SCH (10:59)
[2019-10-05] MEDS: INSULIN GLARGINE,HUM.REC.ANLOG 1,000 UNIT/10 ML VIAL SUBCUT SCH ×2 (11:00→22:12)
[2019-10-05] MEDS: FAMOTIDINE 20 MG TABLET PO SCH (11:06)
--- NOTE | 2019-10-05 15:14 | PDOC PROGRESS REPORT ---
Subjective Progress Note for:: 10/05/19 Subjective:: Patient was rude and uncooperative today. I try to ask him some questions but did not provide any satisfactory answer October 04 patient continues to be uncooperative Reason For Visit: HYPERGLYCEMIA,FALL Physical Exam Vital Signs: Temp Pulse Resp BP Pulse Ox 98.2 F 63 16 105/58 L 90 L 10/05/19 12:29 10/05/19 12:29 10/05/19 12:29 10/05/19 12:29 10/05/19 12:29 Intake & Output 10/04/19 10/05/19 10/06/19 06:59 06:59 06:59 Intake Total 2220 1120 345 Output Total 500 Balance 1720 1120 345 Weight 100 kg 100 kg General appearance: PRESENT: no acute distress, other - Uncooperative Respiratory exam: PRESENT: crackles, rhonchi Cardiovascular exam: PRESENT: +S1, +S2 GI/Abdominal exam: PRESENT: soft Neurological exam: PRESENT: alert, awake Results Laboratory Results: 10/04/19 05:25 10/04/19 05:25 10/02/19 10/02/19 06:10 06:10 Creatine Kinase 305 H Troponin I < 0.012 Impressions: Head CT 10/02/19 06:19 IMPRESSION: 1. No acute intracranial abnormality by CT criteria. This exam was performed according to our departmental dose-optimization program, which includes automated exposure control, adjustment of the mA and/or kV according to patient size and/or use of iterative reconstruction technique. Chest X-Ray 10/02/19 08:58 IMPRESSION: No acute cardiopulmonary process. Assessment and Plan - Diagnosis (1) DKA (diabetic ketoacidoses) Qualifiers: Diabetes mellitus type: type 2 Diabetes mellitus complication detail: without coma Qualified Code(s): E11.10 - Type 2 diabetes mellitus with ketoacidosis without coma Is this a current diagnosis for this admission?: Yes Plan: Resolved. Patient now awaiting transfer to alf (2) SIRS (systemic inflammatory response syndrome) Is this a current diagnosis for this admission?: Yes (3) Hyperkalemia Is this a current diagnosis for this admission?: Yes Plan: Resolved (4) Physical deconditioning Is this a current diagnosis for this admission?: Yes Plan: Patient will need a stent at rehab to get his strength back. Plan is to discharge hopefully on Monday. Is otherwise hemodynamically stable - Plan Summary Summary: Plan is for discharge to snf facility as soon as a bed is available. A COVID 19 test has been ordered preparation for alf discharge - Time Anticipated discharge: Acute Rehab Within: within 48 hours, when bed available
[2019-10-05] MEDS: DOXAZOSIN MESYLATE 2 MG TABLET PO SCH (22:10)
[2019-10-05] MEDS: SIMVASTATIN 40 MG TABLET PO SCH (22:11)
[2019-10-05] MEDS ORDERED: DOCUSATE SODIUM 100 MG CAPSULE PO ONE (23:59)
[2019-10-06] MEDS: NORMAL SALINE 1000 ML 1,000 ML IV PRN (04:55)
[2019-10-06] MEDS: INSULIN REG, HUMAN 100 UNIT/ML 3 ML VIAL (PYX) SUBCUT SCH ×4 (08:05→21:43)
[2019-10-06] MEDS: CHOLECALCIFEROL (D3) 1,000 UNIT (25 MCG) TABLET PO SCH (10:04)
[2019-10-06] MEDS: DOCUSATE SODIUM 100 MG CAPSULE PO SCH ×2 (10:06→17:33)
[2019-10-06] MEDS: ATENOLOL 50 MG TABLET PO SCH (10:06)
[2019-10-06] MEDS: ASPIRIN 81 MG TABLET, CHEWABLE PO SCH (10:06)
[2019-10-06] MEDS: CALCIUM CARBONATE 600 MG/VITAMIN D3 400 UNIT TABLET PO SCH (10:06)
[2019-10-06] MEDS: GABAPENTIN 100 MG CAPSULE PO SCH ×2 (10:06→21:42)
[2019-10-06] MEDS: LISINOPRIL 5 MG TABLET PO SCH (10:06)
[2019-10-06] MEDS: FAMOTIDINE 20 MG TABLET PO SCH (10:06)
[2019-10-06] MEDS: INSULIN GLARGINE,HUM.REC.ANLOG 1,000 UNIT/10 ML VIAL SUBCUT SCH ×2 (10:06→21:43)
[2019-10-06] MEDS: ENOXAPARIN SODIUM INJ 40 MG/0.4 ML DISP.SYRIN SUBCUT SCH (11:43)
--- NOTE | 2019-10-06 14:15 | PDOC PROGRESS REPORT ---
Subjective Progress Note for:: 10/06/19 Subjective:: Patient was rude and uncooperative today. I try to ask him some questions but did not provide any satisfactory answer October 04 patient continues to be uncooperative October 05 patient's attitude is unchanged. No new complaints Reason For Visit: HYPERGLYCEMIA,FALL Physical Exam Vital Signs: Temp Pulse Resp BP Pulse Ox 99.2 F 78 20 104/49 L 93 10/06/19 08:00 10/06/19 08:00 10/06/19 08:00 10/06/19 08:00 10/06/19 08:00 Intake & Output 10/05/19 10/06/19 10/07/19 06:59 06:59 06:59 Intake Total 1120 1570 Balance 1120 1570 Weight 100 kg 110.1 kg General appearance: PRESENT: no acute distress, well-nourished Head exam: PRESENT: atraumatic, normocephalic Eye exam: PRESENT: conjunctiva pink, PERRLA. ABSENT: scleral icterus Ear exam: PRESENT: normal external ear exam Neck exam: ABSENT: carotid bruit, JVD, lymphadenopathy, thyromegaly Respiratory exam: PRESENT: clear to auscultation sunitha. ABSENT: rales, rhonchi, wheezes Cardiovascular exam: PRESENT: RRR, +S1, +S2. ABSENT: diastolic murmur, rubs, systolic murmur Vascular exam: PRESENT: normal capillary refill GI/Abdominal exam: PRESENT: normal bowel sounds, soft. ABSENT: distended, guarding, mass, organolmegaly, rebound, tenderness Rectal exam: PRESENT: deferred Extremities exam: PRESENT: full ROM. ABSENT: calf tenderness, clubbing, pedal edema Neurological exam: PRESENT: alert, awake, oriented to person, oriented to situation Psychiatric exam: ABSENT: homicidal ideation, suicidal ideation Skin exam: PRESENT: dry, intact, warm. ABSENT: cyanosis, rash Results Laboratory Results: 10/04/19 05:25 10/04/19 05:25 10/02/19 10/02/19 06:10 06:10 Creatine Kinase 305 H Troponin I < 0.012 Impressions: Head CT 10/02/19 06:19 IMPRESSION: 1. No acute intracranial abnormality by CT criteria. This exam was performed according to our departmental dose-optimization program, which includes automated exposure control, adjustment of the mA and/or kV according to patient size and/or use of iterative reconstruction technique. Chest X-Ray 10/02/19 08:58 IMPRESSION: No acute cardiopulmonary process. Assessment and Plan - Diagnosis (1) DKA (diabetic ketoacidoses) Qualifiers: Diabetes mellitus type: type 2 Diabetes mellitus complication detail: without coma Qualified Code(s): E11.10 - Type 2 diabetes mellitus with ketoacidosis without coma Is this a current diagnosis for this admission?: Yes (2) SIRS (systemic inflammatory response syndrome) Is this a current diagnosis for this admission?: Yes (3) Hyperkalemia Is this a current diagnosis for this admission?: Yes (4) Physical deconditioning Is this a current diagnosis for this admission?: Yes - Plan Summary Summary: . We will check his labs in a.m. Plan is for discharge to [facility] facility as soon as a bed is available. A COVID 19 test has been ordered preparation for half-way discharge We will increase his Lantus to 15 units twice a day. Patient actually takes a high dose at home but will continue to adjust as needed
[2019-10-06] MEDS: SIMVASTATIN 40 MG TABLET PO SCH (21:42)
[2019-10-06] MEDS: DOXAZOSIN MESYLATE 2 MG TABLET PO SCH (21:42)
[2019-10-07 05:33] LABS: ABSOLUTE BASOPHILS # (AUTO) 0.1 10^3/uL (0.0-0.2); ABSOLUTE EOSINOPHILS # (AUTO) 0.3 10^3/uL (0.0-0.6); ABSOLUTE LYMPHOCYTES (AUTO) 1.8 10^3/uL (0.5-4.7); ABSOLUTE MONOCYTES (AUTO) 1.3 10^3/uL (0.1-1.4); ABSOLUTE NEUT (AUTO) 4.2 10^3/uL (1.7-8.2); BASOPHILS % (AUTO) 0.9 % (0-2); EOSINOPHILS % (AUTO) 3.9 % (0-6); HEMATOCRIT 36.3 % (37.9-51.0); HEMOGLOBIN 13.1 g/dL (13.5-17.0); LYMPHOCYTES % (AUTO) 23.5 % (13-45); MEAN CORPUSCULAR HEMOGLOBIN 31.4 pg (27.0-33.4); MEAN CORPUSCULAR HGB CONC 36.2 g/dL (32.0-36.0); MEAN CORPUSCULAR VOLUME 87 fl (80-97); MONOCYTES % (AUTO) 17.1 % (3-13); PLATELET COUNT 177 10^3/uL (150-450); RED BLOOD COUNT 4.18 10^6/uL (4.35-5.55); RED CELL DISTRIBUTION WIDTH 15.1 % (11.5-14.0); SEGMENTED NEUTROPHILS % (AUTO) 54.6 % (42-78); TOTAL CELLS COUNTED % (AUTO) 100 %; WHITE BLOOD COUNT 7.7 10^3/uL (4.0-10.5)
[2019-10-07 06:02] LABS: BLOOD UREA NITROGEN 10 mg/dL (7-20); CALCIUM 8.5 mg/dL (8.4-10.2); CARBON DIOXIDE 30 mmol/L (22-30); CHLORIDE 101 mmol/L (98-107); GLUCOSE 247 mg/dL (75-110); POTASSIUM 3.1 mmol/L (3.6-5.0)
[2019-10-07 06:08] LABS: ANION GAP 4 (5-19)
[2019-10-07] MEDS ORDERED: POTASSIUM CHLORIDE 10 MEQ TABLET.ER PO ONE ×3 (08:15→09:22)
[2019-10-07] MEDS: LISINOPRIL 5 MG TABLET PO SCH (09:14)
[2019-10-07] MEDS: ASPIRIN 81 MG TABLET, CHEWABLE PO SCH (09:14)
[2019-10-07] MEDS: CHOLECALCIFEROL (D3) 1,000 UNIT (25 MCG) TABLET PO SCH (09:14)
[2019-10-07] MEDS: FAMOTIDINE 20 MG TABLET PO SCH (09:15)
[2019-10-07] MEDS: GABAPENTIN 100 MG CAPSULE PO SCH (09:15)
[2019-10-07] MEDS: INSULIN REG, HUMAN 100 UNIT/ML 3 ML VIAL (PYX) SUBCUT SCH ×2 (09:15→12:14)
[2019-10-07] MEDS: DOCUSATE SODIUM 100 MG CAPSULE PO SCH (09:15)
[2019-10-07] MEDS: ENOXAPARIN SODIUM INJ 40 MG/0.4 ML DISP.SYRIN SUBCUT SCH (09:16)
[2019-10-07] MEDS: INSULIN GLARGINE,HUM.REC.ANLOG 1,000 UNIT/10 ML VIAL SUBCUT SCH (09:16)
[2019-10-07] MEDS: ATENOLOL 50 MG TABLET PO SCH (09:20)
[2019-10-07] MEDS: CALCIUM CARBONATE 600 MG/VITAMIN D3 400 UNIT TABLET PO SCH (09:20)
--- NOTE | 2019-10-07 14:42 | PDOC TRANSFER SUMMARY ---
Impression - Admit/DC Date/PCP Admission Date/Primary Care Provider: 10/02/19 08:28 Discharge Date: 10/07/19 - Discharge Diagnosis (1) DKA (diabetic ketoacidoses) Is this a current diagnosis for this admission?: Yes (2) SIRS (systemic inflammatory response syndrome) Is this a current diagnosis for this admission?: Yes (3) Hyperkalemia Is this a current diagnosis for this admission?: Yes (4) Physical deconditioning Is this a current diagnosis for this admission?: Yes (5) Hyponatremia Is this a current diagnosis for this admission?: Yes (6) Hypokalemia Is this a current diagnosis for this admission?: Yes - Additional Information Resuscitation Status: Full Code Discharge Diet: Diabetic Discharge Activity: Activity As Tolerated Referrals: [facility] [Outside] Home Medications: Amlodipine Besylate [Norvasc 10 mg Tablet] 10 mg PO DAILY 10/02/19 Aspirin [Aspirin 81 mg Chewable Tablet] 81 mg PO DAILY 10/02/19 Atenolol 100 mg PO DAILY 10/02/19 Calcium Carbonate/Vitamin D3 [Calcium 500-Vit D3 200 Caplet] 1 tab PO DAILY 10/02/19 Cholecalciferol (Vitamin D3) [Vitamin D3] 1,000 unit PO DAILY 10/02/19 Lisinopril [Prinivil 5 mg Tablet] 5 mg PO DAILY 10/02/19 Simvastatin [Zocor 40 mg Tablet] 40 mg PO QHS 10/02/19 Terazosin HCl 2 mg PO QHS 10/02/19 Insulin Glargine,Hum.rec.anlog [Lantus Insulin 100 Unit/1 ml 10 ml] 20 unit SUBCUT Q12 unit 10/07/19 History of Present Illiness History of Present Illness: ANTONIO SOLORIO is a 69 year old male Who presents to the emergency room with complaints of having falling about 4 days ago and is unable to get up. He states he lives with his brother however he did not contact his brother nor was a found until he called out to his brother today according to the patient. Patient did seem to be awake alert and oriented. Denies any loss of consciousness. He said he just felt weak and could not get up after falling. There is no head trauma. No nausea vomiting or diarrhea. He apparently was found in an unhealthy environment by EMS. He denies any chest pain abdominal pain or any other pertinent symptoms. Woke up to find the emergency room has really revealed a leukocytosis, hyperglycemia and very minimal rhabdomyolysis. He states that he obviously has not used his insulin since he fell. Patient also tells me that he moved here from [facility] about 2 years ago. He has not been hospitalized in this area since then. He says he normally manages by himself, ambulating the aid of a walker appears to be self- sufficient. He does have a dysarthria but denies any prior stroke he really was unable to provide any further medical insight except for the fact that he has diabetes. Hospital Course Hospital Course: Patient was admitted after being found on the floor where he apparently said he was for about 4 days prior to coming to the hospital. He was found to be hyperglycemic with a blood sugar of 468 on initial arrival. He also had mild ketosis. He was also initially hyperkalemic although currently he is potassium is decreased and at 3.1 today he was replaced orally prior to discharge. He had acute kidney injury consistent with his initial ketosis but this has now r esolved. He has been on Lantus subcutaneously although on a reduced dose from his home dose and this will need to be further evaluated and adjusted depending on his blood sugars. He had an initial leukocytosis which was thought to be secondary to an inflammatory response. There is no clear evidence of any infection. He did not receive any antibiotics while in hospital and his white count has declined from a high of 17,000 to 7.7 today. He has otherwise remained hemodynamically stable. He is weak and physically deconditioned and it is felt that he would benefit from rehabilitation and so is been discharged. I suggest follow-up of his BMP and medication management as outpatient COVID-19 test was negative Physical Exam Vital Signs: Temp Pulse Resp BP Pulse Ox 98.2 F 60 16 151/81 H 93 10/07/19 07:36 10/07/19 07:36 10/07/19 07:36 10/07/19 07:36 10/07/19 07:36 Intake & Output 10/06/19 10/07/19 10/08/19 06:59 06:59 06:59 Intake Total 1570 1260 Output Total 653 Balance 1570 607 Weight 110.1 kg 100 kg General appearance: PRESENT: no acute distress, well-developed, well-nourished. ABSENT: cooperative Head exam: PRESENT: atraumatic, normocephalic Eye exam: PRESENT: conjunctiva pink, EOMI, PERRLA. ABSENT: scleral icterus Mouth exam: PRESENT: moist, tongue midline Neck exam: ABSENT: carotid bruit, JVD, lymphadenopathy, thyromegaly Respiratory exam: PRESENT: clear to auscultation sunitha, unlabored. ABSENT: rales, rhonchi, wheezes Cardiovascular exam: PRESENT: RRR, +S1, +S2. ABSENT: diastolic murmur, rubs, systolic murmur GI/Abdominal exam: PRESENT: normal bowel sounds, soft. ABSENT: distended, guarding, mass, organolmegaly, rebound, tenderness Rectal exam: PRESENT: deferred Extremities exam: PRESENT: full ROM. ABSENT: calf tenderness, clubbing, pedal edema Neurological exam: PRESENT: alert, awake, oriented to person, oriented to place, oriented to time, oriented to situation, CN II-XII grossly intact. ABSENT: motor sensory deficit Psychiatric exam: PRESENT: appropriate affect, normal mood. ABSENT: homicidal ideation, suicidal ideation Skin exam: PRESENT: dry, intact, rash - Lower extremities, chronic, warm. ABSENT: cyanosis Results Laboratory Results: WBC 7.7 10^3/uL (4.0-10.5) 10/07/19 05:18 RBC 4.18 10^6/uL (4.35-5.55) L 10/07/19 05:18 Hgb 13.1 g/dL (13.5-17.0) L 10/07/19 05:18 Hct 36.3 % (37.9-51.0) L 10/07/19 05:18 MCV 87 fl (80-97) 10/07/19 05:18 MCH 31.4 pg (27.0-33.4) 10/07/19 05:18 MCHC 36.2 g/dL (32.0-36.0) H 10/07/19 05:18 RDW 15.1 % (11.5-14.0) H 10/07/19 05:18 Plt Count 177 10^3/uL (150-450) 10/07/19 05:18 Lymph % (Auto) 23.5 % (13-45) 10/07/19 05:18 [place] % (Auto) 17.1 % (3-13) H 10/07/19 05:18 Eos % (Auto) 3.9 % (0-6) 10/07/19 05:18 Baso % (Auto) 0.9 % (0-2) 10/07/19 05:18 Absolute Neuts (auto) 4.2 10^3/uL (1.7-8.2) 10/07/19 05:18 Absolute Lymphs (auto) 1.8 10^3/uL (0.5-4.7) 10/07/19 05:18 Absolute Monos (auto) 1.3 10^3/uL (0.1-1.4) 10/07/19 05:18 Absolute Eos (auto) 0.3 10^3/uL (0.0-0.6) 10/07/19 05:18 Absolute Basos (auto) 0.1 10^3/uL (0.0-0.2) 10/07/19 05:18 Seg Neutrophils % 54.6 % (42-78) 10/07/19 05:18 Sodium 134.8 mmol/L (137-145) L 10/07/19 05:18 Potassium 3.1 mmol/L (3.6-5.0) L 10/07/19 05:18 Chloride 101 mmol/L (98-107) 10/07/19 05:18 Carbon Dioxide 30 mmol/L (22-30) 10/07/19 05:18 Anion Gap 4 (5-19) L 10/07/19 05:18 BUN 10 mg/dL (7-20) 10/07/19 05:18 Creatinine 0.84 mg/dL (0.52-1.25) 10/07/19 05:18 Est GFR ( Amer) > 60 (>60) 10/07/19 05:18 Est GFR (MDRD) Non-Af > 60 (>60) 10/07/19 05:18 Glucose 247 mg/dL (75-110) H 10/07/19 05:18 POC Glucose 310 mg/dL (70-110) H 10/07/19 11:13 Hemoglobin A1c % 13.9 % (4.7-6.0) H 10/03/19 06:34 Calcium 8.5 mg/dL (8.4-10.2) 10/07/19 05:18 Phosphorus 2.7 mg/dL (2.5-4.5) 10/03/19 06:34 Magnesium 2.3 mg/dL (1.6-2.3) 10/03/19 06:34 Total Bilirubin 0.8 mg/dL (0.2-1.3) 10/02/19 06:10 Direct Bilirubin 0.2 mg/dL (0.0-0.4) 10/02/19 06:10 Neonat Total Bilirubin Not Reportable 10/02/19 06:10 Neonat Direct Bilirubin Not Reportable 10/02/19 06:10 Neonat Indirect Bili Not Reportable 10/02/19 06:10 AST 24 U/L (17-59) 10/02/19 06:10 ALT 17 U/L (<50) 10/02/19 06:10 Alkaline Phosphatase 116 U/L (38-126) 10/02/19 06:10 Creatine Kinase 305 U/L (55-170) H 10/02/19 06:10 Troponin I < 0.012 ng/mL 10/02/19 06:10 Total Protein 8.1 g/dL (6.3-8.2) 10/02/19 06:10 Albumin 4.6 g/dL (3.5-5.0) 10/02/19 06:10 TSH 0.74 uIU/mL (0.47-4.68) 10/03/19 06:34 Urine Color YELLOW 10/02/19 07:40 Urine Appearance CLEAR 10/02/19 07:40 Urine pH 5.0 (5.0-9.0) 10/02/19 07:40 Ur Specific [place] 1.027 10/02/19 07:40 Urine Protein 30 mg/dL (NEGATIVE) H 10/02/19 07:40 Urine Glucose (UA) >=1000 mg/dL (NEGATIVE) H 10/02/19 07:40 Urine Ketones 300 mg/dL (NEGATIVE) H 10/02/19 07:40 Urine Blood MODERATE (NEGATIVE) H 10/02/19 07:40 Urine Nitrite NEGATIVE (NEGATIVE) 10/02/19 07:40 Urine Bilirubin NEGATIVE (NEGATIVE) 10/02/19 07:40 Urine Urobilinogen NEGATIVE mg/dL (<2.0) 10/02/19 07:40 Ur Leukocyte Esterase NEGATIVE (NEGATIVE) 10/02/19 07:40 Urine RBC 1-5 /HPF 10/02/19 07:40 Urine WBC NONE SEEN /HPF 10/02/19 07:40 Urine Ascorbic Acid NEGATIVE (NEGATIVE) 10/02/19 07:40 COVID-19 Source NASOPHARYNGEAL 10/04/19 12:10 COVID-19 (RAVEN) NOT DETECTED 10/04/19 12:10 10/02/19 06:10 Troponin I < 0.012 Impressions: Head CT 10/02/19 06:19 IMPRESSION: 1. No acute intracranial abnormality by CT criteria. This exam was performed according to our departmental dose-optimization program, which includes automated exposure control, adjustment of the mA and/or kV according to patient size and/or use of iterative reconstruction technique. Chest X-Ray 10/02/19 08:58 IMPRESSION: No acute cardiopulmonary process. Plan Health Concerns: Medication management and follow-up BMP is suggested Stroke Is this a Stroke Patient?: No Acute Heart Failure - Is this a Heart Failure Patient?: No
[2019-10-07 16:37] VITALS: BP 151/78
== END 2019-10-07 16:37 | DRG 637 ==
LOC: ER 05:48 → EH 08:28 → 4W 09:49 → 4S 10-03 13:05
PROVIDERS: ADMIT Internal Medicine; ATTEND Internal Medicine
DX: E11.10 Type 2 diabetes mellitus with ketoacidosis without coma (principal); R65.11 Systemic inflammatory response syndrome (SIRS) of non-infectious origin with acute organ dysfunction; E87.1 Hypo-osmolality and hyponatremia; N17.9 Acute kidney failure, unspecified; E87.5 Hyperkalemia; E87.6 Hypokalemia; R47.1 Dysarthria and anarthria; T14.8XXA Other injury of unspecified body region, initial encounter; W18.30XA Fall on same level, unspecified, initial encounter; Y92.003 Bedroom of unspecified non-institutional (private) residence as the place of occurrence of the external cause; Z79.4 Long term (current) use of insulin; Z79.82 Long term (current) use of aspirin; Z87.891 Personal history of nicotine dependence
CPT/HCPCS: 36415; 70450; 71045; 80048; 80053; 81001; 82550; 82962; 83036; 83735; 84100; 84443; 84484; 85025; 87635; 93005; 93010; 96361; 96374; 99285; J1650; J1815; J2405; J3490; J7030

== ENCOUNTER 2020-04-27 17:14 | Inpatient (IN) | payer MEDICARE, OTHER ==
[2020-04-27 18:08] LABS: HEMATOCRIT 51.5 % (37.9-51.0); MEAN CORPUSCULAR HEMOGLOBIN 29.3 pg (27.0-33.4); MEAN CORPUSCULAR HGB CONC 32.9 g/dL (32.0-36.0); MEAN CORPUSCULAR VOLUME 89 fl (80-97); PLATELET COUNT 168 10^3/uL (150-450); RED BLOOD COUNT 5.79 10^6/uL (4.35-5.55); RED CELL DISTRIBUTION WIDTH 15.5 % (11.5-14.0); WHITE BLOOD COUNT 16.5 10^3/uL (4.0-10.5)
--- NOTE | 2020-04-27 18:08 | RADIOLOGY REPORT (SQ) ---
EXAM DESCRIPTION: CHEST SINGLE VIEW IMAGES COMPLETED DATE/TIME: 04/27/2020 5:56 pm REASON FOR STUDY: altered mental status, bradycardia COMPARISON: 10/02/2019 EXAM PARAMETERS: NUMBER OF VIEWS: One view. TECHNIQUE: Single frontal radiographic view of the chest acquired. RADIATION DOSE: NA LIMITATIONS: None. FINDINGS: LUNGS AND PLEURA: Low lung volumes limits the examination. No acute pulmonary consolidat ion. No pneumothorax or pleural effusion. MEDIASTINUM AND HILAR STRUCTURES: No masses. Contour normal. HEART AND VASCULAR STRUCTURES: Heart normal in size. Normal vasculature. BONES: No acute findings. HARDWARE: None in the chest. OTHER: No other significant finding. IMPRESSION: 1. Low lung volumes limits the examination. No acute pulmonary findings. TECHNICAL DOCUMENTATION: JOB ID: [id number] 2010 [employer]- All Rights Reserved Reading location - IP/workstation name: [email or web address]
[2020-04-27 18:24] LABS: ABSOLUTE LYMPHOCYTES# (MANUAL) 1.3 10^3/uL (0.5-4.7); ABSOLUTE MONOCYTES # (MANUAL) 1.2 10^3/uL (0.1-1.4); BAND NEUTROPHILS % (MANUAL) 2 % (3-5); BASOPHILS % (MANUAL) 0 % (0-2); EOSINOPHILS % (MANUAL) 0 % (0-6); LYMPHOCYTES % (MANUAL) 5 % (13-45); METAMYELOCYTES % (MANUAL) 1 % (0-1); MONOCYTES % (MANUAL) 7 % (3-13); SEGMENTED NEUTROPHILS % (MAN) 82 % (42-78); TOTAL CELLS COUNTED 100
[2020-04-27 18:25] LABS: ANISOCYTOSIS SLIGHT; PLATELET COMMENT ADEQUATE
[2020-04-27 19:02] LABS: ALBUMIN 3.9 g/dL (3.5-5.0); ALKALINE PHOSPHATASE 107 U/L (38-126); ASPARTATE AMINO TRANSFERASE 37 U/L (17-59); BILIRUBIN,DIRECT 0.3 mg/dL (0.0-0.4); BILIRUBIN,TOTAL 0.7 mg/dL (0.2-1.3); BLOOD UREA NITROGEN 100 mg/dL (7-20); CALCIUM 9.2 mg/dL (8.4-10.2); CARBON DIOXIDE 13 mmol/L (22-30); CHLORIDE 92 mmol/L (98-107)
[2020-04-27 19:08] LABS: ANION GAP 28 (5-19)
[2020-04-27 19:12] LABS: GLUCOSE 886 mg/dL (75-110)
[2020-04-27 19:13] LABS: POTASSIUM 6.3 mmol/L (3.6-5.0)
--- NOTE | 2020-04-27 19:39 | RADIOLOGY REPORT (SQ) ---
EXAM DESCRIPTION: CT HEAD WITHOUT IMAGES COMPLETED DATE/TIME: 04/27/2020 7:22 pm REASON FOR STUDY: possible fall, altered mental status COMPARISON: None. TECHNIQUE: Axial images acquired through the brain without intravenous contrast. Images reviewed wi th bone, brain and subdural windows. Additional sagittal and coronal reconstructions were generated. Images stored on PACS. All CT scanners at this facility use dose modulation, iterative reconstruction, and/or weight based d osing when appropriate to reduce radiation dose to as low as reasonably achievable (ALARA). [facility]: Dose Right [facility]: CareDose [facility]: Dose Right [facility]: Teradose 4D [facility]: Smart [employer] RADIATION DOSE: CT Rad equipment meets quality standard of care and radiation dose reduction techniq ues were employed. CTDIvol: 53.2 mGy. DLP: 1124 mGy-cm. mGy. LIMITATIONS: None. FINDINGS: VENTRICLES: Prominent ventricles secondary to involutional atrophy. CEREBRUM: No masses. No hemorrhage. No midline shift. No evidence for acute infarction. Areas of l ow density in the white matter most likely chronic small vessel ischemic changes. CEREBELLUM: No masses. No hemorrhage. No alteration of density. No evidence for acute infarction. EXTRAAXIAL SPACES: No fluid collections. No masses. ORBITS AND GLOBE: No intra- or extraconal masses. Normal contour of globe without masses. CALVARIUM: No fracture. PARANASAL SINUSES: No fluid or mucosal thickening. SOFT TISSUES: No mass or hematoma. OTHER: No other significant finding. IMPRESSION: Involutional changes with chronic microvascular ischemia. No acute intracranial imaging finding. EVIDENCE OF ACUTE STROKE: NO. COMMENT: Quality ID # [id number]: Final reports with documentation of one or more dose reduction techniques (e.g., Automated exposure control, adjustment of the mA and/or kV according to patient size, use of iterative reconstruction technique) TECHNICAL DOCUMENTATION: JOB ID: [id number] 2010 [employer]- All Rights Reserved Reading location - IP/workstation name: [email or web address]
--- NOTE | 2020-04-27 19:43 | RADIOLOGY REPORT (SQ) ---
EXAM DESCRIPTION: CT CERVICAL SPINE WITHOUT IMAGES COMPLETED DATE/TIME: 04/27/2020 7:22 pm REASON FOR STUDY: possible fall, altered mental status COMPARISON: None. TECHNIQUE: Axial images acquired through the cervical spine without intravenous contrast. Images re viewed with lung, soft tissue and bone windows. Reconstructed coronal and sagittal MPR images review ed. Images stored on PACS. All CT scanners at this facility use dose modulation, iterative reconstruction, and/or weight based d osing when appropriate to reduce radiation dose to as low as reasonably achievable (ALARA). [facility]: Dose Right [facility]: CareDose [facility]: Dose Right [facility]: Teradose 4D [facility]: Smart [employer] RADIATION DOSE: CT Rad equipment meets quality standard of care and radiation dose reduction techniq ues were employed. CTDIvol: 25.4 mGy. DLP: 534 mGy-cm. mGy. LIMITATIONS: None. FINDINGS: ALIGNMENT: Anatomic. MINERALIZATION: Normal. VERTEBRAL BODIES: No fractures or dislocation. DISCS: There is mild disc narrowing at C5-6 and C6-7. There are anterior bridging osteophytes at the se levels. Marginal osteophytes are present. FACETS, LATERAL MASSES, POSTERIOR ELEMENTS: Hypertrophic facet changes are seen on the left. HARDWARE: None in the spine. VISUALIZED RIBS: No fractures. LUNG APICES AND SOFT TISSUES: No significant or acute findings. OTHER: No other significant finding. IMPRESSION: Degenerative disc disease, spondylosis, and limited facet arthropathy. TECHNICAL DOCUMENTATION: JOB ID: [id number] Quality ID # [id number]: Final reports with documentation of one or more dose reduction techniques (e.g., Au tomated exposure control, adjustment of the mA and/or kV according to patient size, use of iterative reconstruction technique) 2010 [employer]- All Rights Reserved Reading location - IP/workstation name: [email or web address]
[2020-04-27] MEDS ORDERED: INSULIN REG, HUMAN 100 UNIT/ML 3 ML VIAL (PYX) IV ONE ×2 (20:17→22:15)
[2020-04-27 20:28] LABS: VENOUS BLOOD BASE EXCESS -12.9 mmol/L; VENOUS BLOOD HCO3 15.1 mmol/L (20-32); VENOUS BLOOD PCO2 41.6 mmHg (35-63)
[2020-04-27 20:30] LABS: VENOUS BLOOD PH 7.18 (7.30-7.42)
[2020-04-27] MEDS: NORMAL SALINE 1000 ML 1,000 ML IV PRN ×2 (20:30→20:42)
--- NOTE | 2020-04-27 20:36 | ER Document Report ---
ED General <SHOAIB EASON - Last Filed: 04/27/20 20:39> - General Mode of Arrival: Medic Information source: Emergency Med Personnel Cannot obtain history due to: Altered mental status <NOREEN MATIAS - Last Filed: 04/28/20 03:50> - General Chief Complaint: Altered Mental Status Stated Complaint: ALTERED MENTAL STATUS Time Seen by Provider: 04/27/20 17:24 - HPI Notes: Found semiconscious on the floor at home. Last known well was about 48 hours ago. He is diabetic and hypertensive by history. Very other little at information is available on him. Apparently a neighbor checked on him because he had not been seen in a couple of days. (NOREEN MATIAS) - Related Data Allergies/Adverse Reactions: No Known Allergies Allergy (Verified 10/02/19 07:14) Past Medical History - General Information source: [facility] Records Cannot obtain history due to: Altered mental status - Social History Smoking Status: Unknown if Ever Smoked Chew tobacco use (# tins/day): No Drug Abuse: None Family History: None, Reviewed & Not Pertinent Endocrine Medical History: Reports: Hx Diabetes Mellitus Type 2 Psychiatric Medical History: Reports: Hx Depression <NOREEN MATIAS - Last Filed: 04/28/20 03:50> - Medical History Notes: Past medical history as documented in the chart is reviewed. (NOREEN MATIAS) Review of Systems - Review of Systems -: Yes ROS unobtainable due to patient's medical condition <NOREEN MATIAS - Last Filed: 04/28/20 03:50> Physical Exam <NOREEN MATIAS - Last Filed: 04/28/20 03:50> - Vital signs Vitals: Resp 18 04/27/20 17:16 - Notes Notes: General: This is a critically ill-appearing male in significant physiologic distress. Vital signs are reviewed. HEENT: Extraocular movements are intact and pupils are round and reactive to light. Mucous membranes are dry and cracked. Lungs: Clear to auscultation all pool. Heart: Regular rate and rhythm no murmur. Abdomen: Obese, soft, nontender, no masses organomegaly. Genitalia: Unremarkable to inspection. Extremities: 1-2+ edema lower extremities. No open lesions noted. Skin: Warm dry fair turgor. Neuro: The patient will respond to gentle stimulus either by calling his name or gently rubbing his chest. He will open his eyes and answer simple questions briefly and then gets confused quickly and says things like "root beer float" randomly. He moves all extremities. (NOREEN MATIAS) Course - Laboratory Result Diagrams: 04/27/20 17:41 04/27/20 17:55 <SHOAIB EASON - Last Filed: 04/27/20 20:39> - Laboratory Result Diagrams: 04/27/20 17:41 04/27/20 23:47 - Diagnostic Test Radiology reviewed: Image reviewed, Reports reviewed <NOREEN MATIAS - Last Filed: 04/28/20 03:50> - Re-evaluation Re-evalutation: 04/28/20 03:47 The patient was hypotensive and hypothermic on arrival. He had been started on Levophed through a peripheral IV line by EMS. Actually this was through an intraosseous because they were not able to gain intravenous access. Ultimately our nursing staff was able to establish 2 peripheral IVs but they were both small gauge and running pressors through them was difficult to do and somewhat risky. It was also difficult to give the patient an adequate fluid bolus throug h small-diameter lines. In order to achieve better vascular access I asked a colleague of dale to assist with placement of a femoral line. She was able to insert a right femoral vein catheter without complication. Patient's condition remained stable and unchanged. Case was discussed with the pugger helper nurse practitioner on-call who came down to evaluate the patient in the emergency department. We discussed the case and she accepted the patient for admission. (NOREEN MATIAS) - Vital Signs Vital signs: Temp Pulse Resp BP Pulse Ox 96.1 F L 52 L 15 98/58 L 98 04/28/20 02:00 04/28/20 01:00 04/28/20 02:37 04/28/20 03:32 04/28/20 02:37 - Laboratory Laboratory results interpreted by me: 04/27/20 04/27/20 04/27/20 17:41 17:41 17:41 WBC 16.5 H RBC 5.79 H Hct 51.5 H RDW 15.5 H Seg Neuts % (Manual) 82 H Band Neutrophils % 2 L Lymphocytes % (Manual) 5 L Abs Neuts (Manual) 14.0 H VBG pH VBG HCO3 Sodium Potassium Chloride Carbon Dioxide Anion Gap BUN Creatinine Est GFR ( Amer) Est GFR (MDRD) Non-Af Glucose Lactic Acid 4.1 H Magnesium 3.9 H Urine Protein Urine Glucose (UA) Urine Ketones Urine Blood 04/27/20 04/27/20 04/27/20 17:41 17:55 18:50 WBC RBC Hct RDW Seg Neuts % (Manual) Band Neutrophils % Lymphocytes % (Manual) Abs Neuts (Manual) VBG pH 7.18 L* VBG HCO3 15.1 L Sodium 132.6 L Potassium 6.3 H* Chloride 92 L Carbon Dioxide 13 L Anion Gap 28 H BUN 100 H Creatinine 4.49 H Est GFR ( Amer) 16 L Est GFR (MDRD) Non-Af 13 L Glucose 886 H* Lactic Acid Magnesium Urine Protein 30 H Urine Glucose (UA) >=500 H Urine Ketones TRACE H Urine Blood SMALL H - Diagnostic Test Radiology results interpreted by me: 04/28/20 03:46 Chest X-Ray 04/27/20 17:32 IMPRESSION: 1. Low lung volumes limits the examination. No acute pulmonary findings. Head CT 04/27/20 18:59 IMPRESSION: Involutional changes with chronic microvascular ischemia. No acute intracranial imaging finding. EVIDENCE OF ACUTE STROKE: NO. Cervical Spine CT 04/27/20 19:00 IMPRESSION: Degenerative disc disease, spondylosis, and limited facet arthropathy. (NOREEN MATIAS) Procedures - Central Line Right Femoral Time completed: 20:20 Consent obtained: No - Emergent Procedure Central line pre-insertion: Sterile PPE donned, Chloraprep applied, Sterile drapes applied Central line lumen type: Triple Anesthetic type: 1% Lidocaine mL's of anesthesia: 2 Ultrasound guided: Yes Line secured with sutures: Yes Central line post-insertion: Blood return from lumens, Biopatch applied, Sutured, Sterile dressing applied Number of attempts: 1 Complications: No <SHOAIB EASON - Last Filed: 04/27/20 20:39> Critical Care Note - Critical Care Note Total time excluding time spent on procedures (mins): 95 <NOREEN MATIAS - Last Filed: 04/28/20 03:50> - Critical Care Note Comments: All critical care time was spent at the bedside, directly managing the patient's care, ordering and interpreting diagnostic studies, and discussing the case with consultants and admitting physicians. (NOREEN MATIAS) Discharge <SHOAIB EASON - Last Filed: 04/27/20 20:39> - Discharge Unit Admitted: ICU <NOREEN MATIAS - Last Filed: 04/28/20 03:50> - Discharge Clinical Impression: DKA (diabetic ketoacidoses) Qualifiers: Diabetes mellitus type: type 2 Diabetes mellitus complication detail: without coma Qualified Code(s): E11.10 - Type 2 diabetes mellitus with ketoacidosis without coma Altered mental status Qualifiers: Altered mental status type: disorientation Qualified Code(s): R41.0 - Disorientation, unspecified Condition: Serious Disposition: ADMITTED INPATIENT
[2020-04-27] MEDS ORDERED: CEFTRIAXONE INJ 1000 MG VIAL IV ONE (21:10)
[2020-04-27 21:43] LABS: APPEARANCE,URINE SLIGHTLY-CLOUDY; BILIRUBIN,URINE NEGATIVE (NEGATIVE); COLOR,URINE YELLOW; GLUCOSE, URINE >=500 mg/dL (NEGATIVE); KETONES,URINE TRACE mg/dL (NEGATIVE); LEUKOCYTE ESTERASE,URINE NEGATIVE (NEGATIVE); NITRITE,URINE NEGATIVE (NEGATIVE); PROTEIN,URINE 30 mg/dL (NEGATIVE); URINE SPECIFIC GRAVITY 1.023; UROBILINOGEN,URINE NEGATIVE mg/dL (<2.0)
[2020-04-27] MEDS ORDERED: ONDANSETRON HCL INJ/PF 4 MG/2 ML SDV IV PRN (22:06)
[2020-04-27] MEDS ORDERED: ACETAMINOPHEN 325 MG TABLET PO PRN (22:06)
[2020-04-27] MEDS ORDERED: NORMAL SALINE 1000 ML 1,000 ML IV PRN (22:13)
[2020-04-27] MEDS ORDERED: PANTOPRAZOLE SODIUM 40 MG VIAL IV ONE (22:30)
[2020-04-27] MEDS: INSULIN, REGULAR 100 UNIT/100 ML NORMAL SALINE IV PRN ×2 (22:45)
[2020-04-28 00:22] LABS: ALBUMIN 3.2 g/dL (3.5-5.0); ALKALINE PHOSPHATASE 88 U/L (38-126); ASPARTATE AMINO TRANSFERASE 32 U/L (17-59); BILIRUBIN,DIRECT 0.3 mg/dL (0.0-0.4); BILIRUBIN,TOTAL 0.4 mg/dL (0.2-1.3); BLOOD UREA NITROGEN 98 mg/dL (7-20); CALCIUM 8.2 mg/dL (8.4-10.2); TOTAL PROTEIN 6.1 g/dL (6.3-8.2)
[2020-04-28] MEDS ORDERED: VANCOMYCIN HCL INJ 1000 MG VIAL IV ONE (00:23)
[2020-04-28 00:27] LABS: CARBON DIOXIDE 16 mmol/L (22-30); CHLORIDE 100 mmol/L (98-107)
[2020-04-28 00:33] LABS: POTASSIUM 4.1 mmol/L (3.6-5.0)
[2020-04-28] MEDS ORDERED: VANCOMYCIN HCL INJ 1000 MG VIAL IV PRN (00:33)
[2020-04-28 00:35] LABS: GLUCOSE 680 mg/dL (75-110)
[2020-04-28] MEDS: DEXTROSE 5%-WATER 250 ML with NOREPINEPHRINE BITARTRATE 4 MG IV PRN ×8 (00:35→12:00)
[2020-04-28] MEDS ORDERED: VANCOMYCIN HCL 750 MG in DEXTROSE 5%-WATER 250 ML IV ONE (00:45)
[2020-04-28 00:50] LABS: ANION GAP 23 (5-19)
[2020-04-28] MEDS ORDERED: NORMAL SALINE INJ/PF 0.9% 10 ML SDV IV PRN (00:51)
[2020-04-28] MEDS ORDERED: NORMAL SALINE 1000 ML 1,000 ML IV PRN (00:54)
[2020-04-28 02:02] LABS: ARTERIAL BLOOD BASE EXCESS -10.3 mmol/L; ARTERIAL BLOOD H2CO3 1.04 mmol/L (1.05-1.35); ARTERIAL BLOOD HCO3 15.5 mmol/L (20-24); ARTERIAL BLOOD O2 SATURATION 95.1 % (94-98); ARTERIAL BLOOD PCO2 34.4 mmHg (35-45); ARTERIAL BLOOD PH 7.27 (7.35-7.45); ARTERIAL BLOOD TOTAL CO2 16.5 mmol/L (23-27)
[2020-04-28 02:04] LABS: ARTERIAL BLOOD FIO2 2L
[2020-04-28] MEDS ORDERED: SODIUM BICARBONATE 8.4% INJ 50 MEQ/50 ML DISP.SYRIN IV ONE (03:00)
[2020-04-28] MEDS: NORMAL SALINE 1000 ML 1,000 ML IV PRN ×7 (03:30→22:30)
[2020-04-28] MEDS ORDERED: NOREPINEPHRINE BITARTRATE INJ/PF 4 MG/4 ML SDV IV ONE (03:41)
[2020-04-28] MEDS ORDERED: INSULIN REG, HUMAN 100 UNIT/ML 3 ML VIAL (PYX) ONE (04:38)
[2020-04-28] MEDS ORDERED: HALOPERIDOL LACTATE INJ 5 MG/1 ML VIAL ONE ×2 (04:39→22:27)
[2020-04-28] MEDS ORDERED: DEXTROSE 5%-1/2 NORMAL SALINE 1,000 ML IV PRN (04:39)
[2020-04-28] MEDS: INSULIN, REGULAR 100 UNIT/100 ML NORMAL SALINE IV PRN ×2 (04:40)
[2020-04-28] MEDS ORDERED: HALOPERIDOL LACTATE INJ 5 MG/1 ML VIAL IV ONE (04:42)
--- NOTE | 2020-04-28 05:01 | CRITICAL CARE ADMISSION REPORT ---
HPI Date:: 04/27/20 Time:: 23:00 Reason for ICU Reason:: HHKN, hyperkalemia , septic , RAHAT Admission Date/Time & PCP: Admission Date/Time: 04/27/20 23:05 Primary Care Provider: CYNDI MORGAN MD HPI: Found semiconscious on the floor at home. Last known well was about 48 hours ago. He is diabetic and hypertensive by history. Very other little at information is available on him. Apparently a neighbor checked on him because he had not been seen in a couple of days. History obtained from:: ED - Diagnosis/Plan (1) Sepsis associated hypotension Is this a current diagnosis for this admission?: Yes Plan: IV bolus given NS 4 liters total Trend Lactic acid Norepinephrine started to maintain MAP > 60 mmhg (2) Altered mental status Qualifiers: Altered mental status type: disorientation Qualified Code(s): R41.0 - Disorientation, unspecified Is this a current diagnosis for this admission?: Yes Plan: Neuro check CT head obtained (3) DKA (diabetic ketoacidoses) Qualifiers: Diabetes mellitus type: type 2 Diabetes mellitus complication detail: without coma Qualified Code(s): E11.10 - Type 2 diabetes mellitus with ketoacidosis without coma Is this a current diagnosis for this admission?: Yes Plan: Insulin IV titrate per blood sugars IV NS bolus BMP every 4 hours (4) Hyperkalemia Is this a current diagnosis for this admission?: Yes Plan: Most probably due to acidosis , fluid resuscitation Insulin IV BMP every 4 hours x 24 hours Past Medical History Cardiac Medical History: Reports: Congestive Heart Failure, Hypertension Pulmonary Medical History: Reports: Chronic Obstructive Pulmonary Disease (COPD) Endocrine Medical History: Reports: Diabetes Mellitus Type 2 Psychiatric Medical History: Reports: Depression Social/Family History - Social History Lives with: Alone Smoking Status: Unknown if Ever Smoked Frequency of Alcohol Use: None - Medication/Allergies Home Medications: Amlodipine Besylate [Norvasc 10 mg Tablet] 10 mg PO DAILY 10/02/19 Aspirin [Aspirin 81 mg Chewable Tablet] 81 mg PO DAILY 10/02/19 Atenolol 100 mg PO DAILY 10/02/19 Calcium Carbonate/Vitamin D3 [Calcium 500-Vit D3 200 Caplet] 1 tab PO DAILY 10/02/19 Cholecalciferol (Vitamin D3) [Vitamin D3] 1,000 unit PO DAILY 10/02/19 Lisinopril [Prinivil 5 mg Tablet] 5 mg PO DAILY 10/02/19 Simvastatin [Zocor 40 mg Tablet] 40 mg PO QHS 10/02/19 Terazosin HCl 2 mg PO QHS 10/02/19 Insulin Glargine,Hum.rec.anlog [Lantus Insulin 100 Unit/1 ml 10 ml] 20 unit SUBCUT Q12 unit 10/07/19 Allergies/Adverse Reactions: No Known Allergies Allergy (Verified 10/02/19 07:14) Review of Systems ROS unobtainable: Due to mental status Respiratory: PRESENT: dyspnea Physical Exam Vital Signs: Temp Pulse Resp BP Pulse Ox 97.4 F 53 L 20 108/59 L 95 04/27/20 17:37 04/27/20 20:37 04/28/20 00:01 04/28/20 00:00 04/28/20 00:01 Intake & Output 04/26/20 04/27/20 04/28/20 06:59 06:59 06:59 Intake Total 2100 Output Total 200 Balance 1900 Weight 99.4 kg Weight/Height Weight 99.4 kg Height 6 ft 1 in General appearance: PRESENT: mild distress Head exam: PRESENT: normocephalic Eye exam: PRESENT: PERRLA, scleral icterus Ear exam: PRESENT: normal external ear exam Mouth exam: PRESENT: moist, neck supple, tongue midline Neck exam: PRESENT: tenderness Respiratory exam: PRESENT: accessory muscle use, tachypnea Laboratory/Radiographs Laboratory Results: 04/27/20 17:41 04/27/20 04/27/20 04/27/20 17:41 17:41 17:41 WBC 16.5 H RBC 5.79 H Hgb 17.0 Hct 51.5 H MCV 89 MCH 29.3 MCHC 32.9 RDW 15.5 H Plt Count 168 Seg Neutrophils % Not Reportable VBG pH VBG pCO2 VBG HCO3 VBG Base Excess Sodium Potassium Chloride Carbon Dioxide Anion Gap BUN Creatinine Est GFR ( Amer) Glucose Lactic Acid 4.1 H Calcium Magnesium 3.9 H Total Bilirubin AST Alkaline Phosphatase Total Protein Albumin Urine Color Urine Appearance Urine pH Ur Specific [place] Urine Protein Urine Glucose (UA) Urine Ketones Urine Blood Urine Nitrite Ur Leukocyte Esterase Urine WBC (Auto) Urine RBC (Auto) 04/27/20 04/27/20 04/27/20 17:41 17:55 18:50 WBC RBC Hgb Hct MCV MCH MCHC RDW Plt Count Seg Neutrophils % VBG pH 7.18 L* VBG pCO2 41.6 VBG HCO3 15.1 L VBG Base Excess -12.9 Sodium 132.6 L Potassium 6.3 H* Chloride 92 L Carbon Dioxide 13 L Anion Gap 28 H BUN 100 H Creatinine 4.49 H Est GFR ( Amer) 16 L Glucose 886 H* Lactic Acid Calcium 9.2 Magnesium Total Bilirubin 0.7 AST 37 Alkaline Phosphatase 107 Total Protein 7.0 Albumin 3.9 Urine Color YELLOW Urine Appearance SLIGHTLY-CLOUDY Urine pH 5.0 Ur Specific [place] 1.023 Urine Protein 30 H Urine Glucose (UA) >=500 H Urine Ketones TRACE H Urine Blood SMALL H Urine Nitrite NEGATIVE Ur Leukocyte Esterase NEGATIVE Urine WBC (Auto) 1 Urine RBC (Auto) 0 Impressions: Chest X-Ray 04/27/20 17:32 IMPRESSION: 1. Low lung volumes limits the examination. No acute pulmonary findings. Head CT 04/27/20 18:59 IMPRESSION: Involutional changes with chronic microvascular ischemia. No acute intracranial imaging finding. EVIDENCE OF ACUTE STROKE: NO. Cervical Spine CT 04/27/20 19:00 IMPRESSION: Degenerative disc disease, spondylosis, and limited facet arthropathy. All labs, radiographs, diagnostic studies and EKGs were personally reviewed: Yes In addition, reports of radiographic and diagnostic studies were read: Yes Critical Time Critical Time (minutes): 50 -: The care of a critically ill patient is dynamic. This note represents a static moment in the admission process. Orders and treatments may be given simultaneously and urgently, and time is not insurance claim representative of the treatment process. This patient requires Critical Care secondary to life threatening organ or limb dysfunction. Without Critical Care services, the patient is at risk for increased mortality and morbidity.
[2020-04-28 05:13] LABS: HEMATOCRIT 42.6 % (37.9-51.0); MEAN CORPUSCULAR HEMOGLOBIN 29.4 pg (27.0-33.4); MEAN CORPUSCULAR HGB CONC 34.1 g/dL (32.0-36.0); MEAN CORPUSCULAR VOLUME 86 fl (80-97); PLATELET COUNT 156 10^3/uL (150-450); RED BLOOD COUNT 4.94 10^6/uL (4.35-5.55); RED CELL DISTRIBUTION WIDTH 15.5 % (11.5-14.0); WHITE BLOOD COUNT 16.1 10^3/uL (4.0-10.5)
[2020-04-28 05:15] LABS: HEMOGLOBIN 14.5 g/dL (13.5-17.0)
[2020-04-28 05:22] LABS: ALKALINE PHOSPHATASE 86 U/L (38-126); ANION GAP 17 (5-19); ASPARTATE AMINO TRANSFERASE 34 U/L (17-59); BILIRUBIN,DIRECT 0.3 mg/dL (0.0-0.4); BILIRUBIN,TOTAL 0.5 mg/dL (0.2-1.3); BLOOD UREA NITROGEN 87 mg/dL (7-20); CALCIUM 7.9 mg/dL (8.4-10.2); CARBON DIOXIDE 21 mmol/L (22-30); CHLORIDE 108 mmol/L (98-107); CREATINE KINASE 1004 U/L (55-170); POTASSIUM 3.8 mmol/L (3.6-5.0)
[2020-04-28 05:29] LABS: NT PRO BNP 170 pg/mL (<125)
[2020-04-28 05:31] LABS: GLUCOSE 428 mg/dL (75-110)
[2020-04-28 05:33] LABS: TROPONIN I < 0.012 ng/mL
[2020-04-28] MEDS: HEPARIN SOD (PORCINE) 5,000 UNIT/ML 1 ML VIAL SUBCUT SCH ×3 (05:44→23:37)
--- NOTE | 2020-04-28 08:30 | RADIOLOGY REPORT (SQ) ---
EXAM DESCRIPTION: CHEST SINGLE VIEW IMAGES COMPLETED DATE/TIME: 04/28/2020 5:41 am REASON FOR STUDY: SOB COMPARISON: Chest films 04/27/2020, 10/02/2019 EXAM PARAMETERS: NUMBER OF VIEWS: One view. TECHNIQUE: Single frontal radiographic view of the chest acquired. RADIATION DOSE: NA LIMITATIONS: None. FINDINGS: LUNGS AND PLEURA: Minimal patchy bilateral basilar airspace disease left greater than righ t. No pleural effusion. No pneumothorax. MEDIASTINUM AND HILAR STRUCTURES: No masses. Contour normal. HEART AND VASCULAR STRUCTURES: Heart normal in size. Normal vasculature. BONES: No acute findings. HARDWARE: None in the chest. OTHER: No other significant finding. IMPRESSION: Patchy bilateral airspace disease TECHNICAL DOCUMENTATION: JOB ID: [id number] 2010 [employer]- All Rights Reserved Reading location - IP/workstation name: [email or web address]
[2020-04-28] MEDS ORDERED: DEXTROSE 40% GEL 15 GM TUBE PO PRN ×2 (08:58)
[2020-04-28] MEDS ORDERED: DEXTROSE 50%-WATER 25 GM/50 ML DISP.SYRIN IV PRN ×2 (08:58)
[2020-04-28] MEDS ORDERED: GLUCAGON,HUMAN RECOMB 1 MG INJ IM PRN (08:58)
[2020-04-28] MEDS ORDERED: INSULIN GLARGINE,HUM.REC.ANLOG 1,000 UNIT/10 ML VIAL (PYX) SUBCUT SCH (09:30)
[2020-04-28] MEDS ORDERED: PANTOPRAZOLE SODIUM 40 MG VIAL IV SCH (10:00)
[2020-04-28 12:10] LABS: ANION GAP 10 (5-19); BLOOD UREA NITROGEN 75 mg/dL (7-20); CALCIUM 7.8 mg/dL (8.4-10.2); CARBON DIOXIDE 22 mmol/L (22-30); CHLORIDE 117 mmol/L (98-107); GLUCOSE 156 mg/dL (75-110); POTASSIUM 3.8 mmol/L (3.6-5.0)
[2020-04-28] MEDS: DOCUSATE SODIUM 100 MG CAPSULE PO SCH (12:26)
[2020-04-28] MEDS: INSULIN REG, HUMAN 100 UNIT/ML 3 ML VIAL (PYX) SUBCUT SCH ×2 (12:26→18:03)
[2020-04-28] MEDS: PANTOPRAZOLE SODIUM 40 MG VIAL IV SCH (12:40)
[2020-04-28] MEDS: HYDROCORTISONE SOD SUCCINATE INJ/PF 100 MG/2 ML SDV IV SCH ×2 (17:07→23:37)
[2020-04-28] MEDS ORDERED: CEFTRIAXONE 1 GM/D5W RTU 1 GM/50 ML RTUPB IV SCH (22:00)
[2020-04-28] MEDS ORDERED: HALOPERIDOL LACTATE INJ 5 MG/1 ML VIAL IV PRN (22:48)
[2020-04-28] MEDS: INSULIN GLARGINE,HUM.REC.ANLOG 1,000 UNIT/10 ML VIAL SUBCUT SCH (23:37)
--- NOTE | 2020-04-29 00:36 | CDI QUERY ---
CDI Query CDI Review: We are seeking further clarification of documentation to reflect the severity of illness of your patient. Per ED notes: Found semiconscious on the floor at home. Last known well was about 48 hours ago. The patient was hypotensive and hypothermic on arrival. He had been started on Levophed through a peripheral IV line by EMS. Temp Pulse Resp BP Pulse Ox 96.1 F L 52 L 15 98/58 L 98 Labs: WBC: 16.5 Lactic Acid: 4.1 Sodium: 132.6 BUN / Cr: 100 / 4.49 Glucose: 886 Per H&P: Altered mental status Based on your medical judgement, can you further clarify Altered Mental Status in the Progress Notes and carry through the Discharge Summary: Metabolic Encephalopathy Toxic Encephalopathy Altered mental status without encephalopathy Other condition (please specify) None of the above / Not applicable Thank you for your consideration. CHETAN Bhakta RN Clinical Water Softener Installer Physician Advisor
--- NOTE | 2020-04-29 00:44 | CDI QUERY ---
CDI Query CDI Review: We are seeking further clarification of documentation to reflect the severity of illness of your patient. Per ED notes: Found semiconscious on the floor at home. Last known well was about 48 hours ago. The patient was hypotensive and hypothermic on arrival. He had been started on Levophed through a peripheral IV line by EMS. Temp Pulse Resp BP Pulse Ox 96.1 F L 52 L 15 98/58 L 98 Labs: WBC: 16.5 Lactic Acid: 4.1 Sodium: 132.6 BUN / Cr: 100 / 4.49 Glucose: 886 Per Critical Care Notes: Sepsis associated hypotension Is this a current diagnosis for this admission?: Yes Plan: IV bolus given NS 4 liters total Trend Lactic acid Norepinephrine started to maintain MAP > 60 mmhg Based on your medical judgement, can you further clarify in the Progress Notes and carry through the Discharge Summary: Septic Shock Hypotension without shock Another condition (please specify) None of the above / Not applicable Thank you for your consideration. CHETAN Bhakta RN Clinical Heavy Mobile Equipment Repairer Physician Advisor [email or web address]
[2020-04-29] MEDS: INSULIN REG, HUMAN 100 UNIT/ML 3 ML VIAL (PYX) SUBCUT SCH ×4 (01:48→17:29)
[2020-04-29] MEDS: DEXTROSE 5%-WATER 250 ML with NOREPINEPHRINE BITARTRATE 4 MG IV PRN ×2 (01:50)
[2020-04-29 04:20] LABS: HEMATOCRIT 44.4 % (37.9-51.0); HEMOGLOBIN 15.2 g/dL (13.5-17.0); MEAN CORPUSCULAR HEMOGLOBIN 29.2 pg (27.0-33.4); MEAN CORPUSCULAR HGB CONC 34.3 g/dL (32.0-36.0); MEAN CORPUSCULAR VOLUME 85 fl (80-97); PLATELET COUNT 119 10^3/uL (150-450); RED BLOOD COUNT 5.22 10^6/uL (4.35-5.55); RED CELL DISTRIBUTION WIDTH 15.5 % (11.5-14.0); WHITE BLOOD COUNT 15.8 10^3/uL (4.0-10.5)
[2020-04-29 04:34] LABS: ALBUMIN 3.2 g/dL (3.5-5.0); ALKALINE PHOSPHATASE 88 U/L (38-126); ASPARTATE AMINO TRANSFERASE 70 U/L (17-59); BILIRUBIN,DIRECT 0.3 mg/dL (0.0-0.4); BILIRUBIN,TOTAL 0.6 mg/dL (0.2-1.3); CALCIUM 8.2 mg/dL (8.4-10.2); GLUCOSE 267 mg/dL (75-110); POTASSIUM 4.3 mmol/L (3.6-5.0); TOTAL PROTEIN 6.3 g/dL (6.3-8.2)
[2020-04-29 04:39] LABS: CHLORIDE 122 mmol/L (98-107)
[2020-04-29 05:00] LABS: CARBON DIOXIDE 11 mmol/L (22-30)
[2020-04-29 05:01] LABS: ANION GAP 21 (5-19); BLOOD UREA NITROGEN 51 mg/dL (7-20)
[2020-04-29] MEDS: NORMAL SALINE 1000 ML 1,000 ML IV PRN (05:05)
[2020-04-29 05:46] LABS: ARTERIAL BLOOD BASE EXCESS -11.8 mmol/L; ARTERIAL BLOOD H2CO3 0.81 mmol/L (1.05-1.35); ARTERIAL BLOOD HCO3 12.9 mmol/L (20-24); ARTERIAL BLOOD O2 SATURATION 93.8 % (94-98); ARTERIAL BLOOD PCO2 26.9 mmHg (35-45); ARTERIAL BLOOD PO2 74.2 mmHg (80-100); ARTERIAL BLOOD TOTAL CO2 13.7 mmol/L (23-27)
[2020-04-29 05:47] LABS: ARTERIAL BLOOD FIO2 2L NC
[2020-04-29] MEDS: HEPARIN SOD (PORCINE) 5,000 UNIT/ML 1 ML VIAL SUBCUT SCH ×3 (06:08→22:04)
[2020-04-29] MEDS: HYDROCORTISONE SOD SUCCINATE INJ/PF 100 MG/2 ML SDV IV SCH ×3 (06:09→22:04)
[2020-04-29] MEDS ORDERED: INFLUENZA QUAD (6MOS+) 2020-21 VAC 0.5 ML SYR IM ONE (08:00)
--- NOTE | 2020-04-29 08:51 | RADIOLOGY REPORT (SQ) ---
EXAM DESCRIPTION: CHEST SINGLE VIEW IMAGES COMPLETED DATE/TIME: 04/29/2020 6:41 am REASON FOR STUDY: congestion COMPARISON: 04/28/2020 EXAM PARAMETERS: NUMBER OF VIEWS: One view. TECHNIQUE: Single frontal radiographic view of the chest acquired. RADIATION DOSE: NA LIMITATIONS: None. FINDINGS: LUNGS AND PLEURA: Low lung volumes with patchy basilar opacities, left greater than right and similar to prior. No significant effusion. No pneumothorax. MEDIASTINUM AND HILAR STRUCTURES: Stable. HEART AND VASCULAR STRUCTURES: Stable. BONES: No acute findings. HARDWARE: None in the chest. OTHER: No other significant finding. IMPRESSION: Low lung volumes with patchy bibasilar opacities, left greater right, similar to prior. TECHNICAL DOCUMENTATION: JOB ID: [id number] 2010 [employer]- All Rights Reserved Reading location - IP/workstation name: [email or web address]
[2020-04-29] MEDS: INSULIN GLARGINE,HUM.REC.ANLOG 1,000 UNIT/10 ML VIAL SUBCUT SCH ×2 (10:23→22:03)
[2020-04-29] MEDS: DOCUSATE SODIUM 100 MG CAPSULE PO SCH (10:23)
[2020-04-29] MEDS: PANTOPRAZOLE SODIUM 40 MG VIAL IV SCH (10:23)
--- NOTE | 2020-04-29 10:58 | PDOC CRITICAL CARE PROG REPORT ---
General Date:: 04/29/20 ICU Day:: 2 Hospital Day:: 2 Resuscitation Status: Full Code Events in the past 12 to 24 Hours:: More awake, off levophed. Review of systems relevant to events:: Endocrine Reason for ICU Addmission:: HHKN, hyperkalemia. - Medications: Medications reviewed and adjusted accordingly: Yes Vasopressors:: None Sedation:: None Physical Exam Vital Signs: Temp Pulse Resp BP Pulse Ox 98.6 F 62 14 137/78 H 93 04/29/20 10:00 04/29/20 10:00 04/29/20 10:14 04/29/20 10:14 04/29/20 10:14 Intake & Output 04/28/20 04/29/20 04/30/20 06:59 06:59 06:59 Intake Total 5667 6097 20 Output Total 1890 5770 700 Balance 3777 327 -680 Weight 100.6 kg 102.9 kg Weight/Height Weight 102.9 kg Height 6 ft 1 in General appearance: PRESENT: no acute distress Head exam: PRESENT: atraumatic, normocephalic Eye exam: PRESENT: conjunctiva pink, EOMI, PERRLA. ABSENT: scleral icterus Ear exam: PRESENT: normal external ear exam Mouth exam: PRESENT: moist, tongue midline Respiratory exam: PRESENT: clear to auscultation sunitha. ABSENT: rales, rhonchi, wheezes Cardiovascular exam: PRESENT: RRR. ABSENT: diastolic murmur, rubs, systolic murmur GI/Abdominal exam: PRESENT: normal bowel sounds, soft. ABSENT: distended, guarding, mass, organolmegaly, rebound, tenderness Rectal exam: PRESENT: deferred Gentrourinary exam: PRESENT: indwelling catheter Extremities exam: PRESENT: full ROM. ABSENT: calf tenderness, clubbing, pedal edema Musculoskeletal exam: PRESENT: normal inspection Neurological exam: PRESENT: alert, altered, awake, oriented to person, oriented to place, other - He is altered but how much is baseline is not readil known. Close to baseline by our estimate Psychiatric exam: PRESENT: anxious - At times Skin exam: PRESENT: dry, intact, warm. ABSENT: cyanosis, rash Laboratory/Radiographs Laboratory Results: 04/29/20 04:07 04/29/20 04:07 04/28/20 04/28/20 04/28/20 10:10 10:56 14:23 WBC RBC Hgb Hct MCV MCH MCHC RDW Plt Count Carbonic Acid HCO3/H2CO3 Ratio ABG pH ABG pCO2 ABG pO2 ABG HCO3 ABG O2 Saturation ABG Base Excess FiO2 Sodium 148.6 H Potassium 3.8 Chloride 117 H Carbon Dioxide 22 Anion Gap 10 BUN 75 H Creatinine 2.60 H Est GFR ( Amer) 30 L Glucose 156 H Lactic Acid 2.0 2.2 H Calcium 7.8 L Magnesium Total Bilirubin AST Alkaline Phosphatase Total Protein Albumin 04/29/20 04/29/20 04/29/20 04:07 04:07 05:05 WBC 15.8 H RBC 5.22 Hgb 15.2 Hct 44.4 MCV 85 MCH 29.2 MCHC 34.3 RDW 15.5 H Plt Count 119 L Carbonic Acid 0.81 L HCO3/H2CO3 Ratio 15:1 ABG pH 7.30 L ABG pCO2 26.9 L ABG pO2 74.2 L ABG HCO3 12.9 L ABG O2 Saturation 93.8 L ABG Base Excess -11.8 FiO2 2L NC Sodium 154.1 H Potassium 4.3 Chloride 122 H Carbon Dioxide 11 L D Anion Gap 21 H BUN 51 H D Creatinine 1.90 H Est GFR ( Amer) 43 L Glucose 267 H Lactic Acid Calcium 8.2 L Magnesium 2.8 H Total Bilirubin 0.6 AST 70 H Alkaline Phosphatase 88 Total Protein 6.3 Albumin 3.2 L 04/28/20 04/28/20 04/29/20 04:30 04:30 04:07 Creatine Kinase 1004 H Troponin I < 0.012 NT-Pro-B Natriuret Pep 170 H 1210 H Impressions: Head CT 04/27/20 18:59 IMPRESSION: Involutional changes with chronic microvascular ischemia. No acute intracranial imaging finding. EVIDENCE OF ACUTE STROKE: NO. Cervical Spine CT 04/27/20 19:00 IMPRESSION: Degenerative disc disease, spondylosis, and limited facet arthropa thy. Chest X-Ray 04/29/20 05:00 IMPRESSION: Low lung volumes with patchy bibasilar opacities, left greater right, similar to prior. All labs, radiographs, diagnostic studies and EKGs were personally reviewed: Yes In addition, reports of radiographic and diagnostic studies were read: Yes Assessment and Plan - Diagnosis (1) Diabetes mellitus with hyperosmolarity without hyperglycemic hyperosmolar nonketotic coma Is this a current diagnosis for this admission?: Yes Plan: He is not and has not been in DKA. He was in HHNK. There is likely an element of glucose toxicity with a BG of 800 on admission. There is a basline alteration in mental status given his previous placement in a SNF. He likely had a metabolic encephalopathy pretty well resolved by now. (2) Altered mental status Qualifiers: Altered mental status type: disorientation Qualified Code(s): R41.0 - Disorientation, unspecified Is this a current diagnosis for this admission?: Yes Plan: As above. (3) SIRS (systemic inflammatory response syndrome) Is this a current diagnosis for this admission?: Yes Plan: He did have hypotheria to 93, WBC if 16.5 giving him 2/4 SIRS criteria but no sign of infection. Antibiotics stopped as there are no positive cultures. Not infected nor septic. (4) Physical deconditioning Is this a current diagnosis for this admission?: Yes Plan: Somewhat deconditioned on admission, now more so with illness and immobility. Plan Summary: He needs PT, mobilization and likely SNF at least for rehab. Critical Time Critical Time (minutes): 30 Level of Care: IMCU Anticipated discharge: SNF Anticipated DC Timeframe: Other -: 1. The care of a critical patient is a dynamic process. This note is a employer relations representative synopsis but static in nature. The timeframe for treatments given in order is not necessarily the actual time these treatments may have been done. 2. This patient requires critical care secondary to ongoing requirements for therapy not offered or safe outside the critical care environment. Transfer to a lower level of care will result in altered life or limb morbidity and mortality. 3. Multidisciplinary rounds completed. 4. ABCDE bundle addressed.
[2020-04-30] MEDS: INSULIN REG, HUMAN 100 UNIT/ML 3 ML VIAL (PYX) SUBCUT SCH ×5 (02:40→22:06)
[2020-04-30 04:21] LABS: HEMOGLOBIN 14.2 g/dL (13.5-17.0); MEAN CORPUSCULAR HEMOGLOBIN 29.5 pg (27.0-33.4); MEAN CORPUSCULAR HGB CONC 34.5 g/dL (32.0-36.0); MEAN CORPUSCULAR VOLUME 85 fl (80-97); PLATELET COUNT 112 10^3/uL (150-450); RED CELL DISTRIBUTION WIDTH 15.5 % (11.5-14.0); WHITE BLOOD COUNT 11.9 10^3/uL (4.0-10.5)
[2020-04-30] MEDS: HYDROCORTISONE SOD SUCCINATE INJ/PF 100 MG/2 ML SDV IV SCH ×3 (05:56→22:05)
[2020-04-30] MEDS: HEPARIN SOD (PORCINE) 5,000 UNIT/ML 1 ML VIAL SUBCUT SCH ×3 (05:56→21:51)
--- NOTE | 2020-04-30 07:58 | PDOC CRITICAL CARE PROG REPORT ---
General Date:: 04/30/20 Hospital Day:: 2 Resuscitation Status: Full Code Events in the past 12 to 24 Hours:: More awake, off levophed. 04/29: Downgraded to medical floor. Awaiting bed. Mental status better. Off insulin drip 04/30: Mental status better. Asked for coffee with 2 Sweet % Lows. Still deconditioned, PT to see. Review of systems relevant to events:: Endocrine, renal Reason for ICU Addmission:: HHKN, hyperkalemia, both resolved. Hypernatremic and deconditioned. - Medications: Medications reviewed and adjusted accordingly: Yes Vasopressors:: None Sedation:: None Physical Exam Vital Signs: Temp Pulse Resp BP Pulse Ox 98.1 F 50 L 16 110/60 91 L 04/30/20 02:00 04/30/20 02:00 04/30/20 02:00 04/30/20 02:12 04/30/20 02:12 Intake & Output 04/29/20 04/30/20 05/01/20 06:59 06:59 06:59 Intake Total 6097 1520 Output Total 5770 1700 Balance 327 -180 Weight 102.9 kg 103.1 kg Weight/Height Weight 103.1 kg Height 6 ft 1 in General appearance: PRESENT: no acute distress, cooperative Head exam: PRESENT: atraumatic, normocephalic Eye exam: PRESENT: conjunctiva pink, EOMI, PERRLA. ABSENT: scleral icterus Mouth exam: PRESENT: moist, tongue midline Respiratory exam: PRESENT: clear to auscultation sunitha. ABSENT: rales, rhonchi, wheezes Cardiovascular exam: PRESENT: RRR. ABSENT: diastolic murmur, rubs, systolic murmur GI/Abdominal exam: PRESENT: normal bowel sounds, soft. ABSENT: distended, guarding, mass, organolmegaly, rebound, tenderness Rectal exam: PRESENT: deferred Extremities exam: PRESENT: full ROM. ABSENT: calf tenderness, clubbing, pedal edema Neurological exam: PRESENT: alert, awake, oriented to person, oriented to place, oriented to time, oriented to situation, CN II-XII grossly intact. ABSENT: motor sensory deficit Psychiatric exam: PRESENT: appropriate affect, normal mood. ABSENT: homicidal ideation, suicidal ideation Skin exam: PRESENT: dry, intact, warm. ABSENT: cyanosis, rash Laboratory/Radiographs Laboratory Results: 04/30/20 04:14 04/29/20 04:07 04/30/20 04/30/20 04:14 04:14 WBC 11.9 H RBC 4.80 Hgb 14.2 Hct 41.0 MCV 85 MCH 29.5 MCHC 34.5 RDW 15.5 H Plt Count 112 L Magnesium 2.7 H 04/28/20 04/28/20 04/29/20 04:30 04:30 04:07 Creatine Kinase 1004 H Troponin I < 0.012 NT-Pro-B Natriuret Pep 170 H 1210 H 04/30/20 04:14 Creatine Kinase Troponin I NT-Pro-B Natriuret Pep 813 H Impressions: Head CT 04/27/20 18:59 IMPRESSION: Involutional changes with chronic microvascular ischemia. No acute intracranial imaging finding. EVIDENCE OF ACUTE STROKE: NO. Cervical Spine CT 04/27/20 19:00 IMPRESSION: Degenerative disc disease, spondylosis, and limited facet arthropathy. Chest X-Ray 04/29/20 05:00 IMPRESSION: Low lung volumes with patchy bibasilar opacities, left greater right, similar to prior. All labs, radiographs, diagnostic studies and EKGs were personally reviewed: Yes In addition, reports of radiographic and diagnostic studies were read: Yes Assessment and Plan - Diagnosis (1) Diabetes mellitus with hyperosmolarity without hyperglycemic hyperosmolar nonketotic coma Is this a current diagnosis for this admission?: Yes Plan: Resolved. Lactic acid 2.0. U/O good. BG under 200. (2) Altered mental status Qualifiers: Altered mental status type: disorientation Qualified Code(s): R41.0 - Disorientation, unspecified Is this a current diagnosis for this admission?: Yes Plan: His mental status seems to be at or close to baseline. (3) SIRS (systemic inflammatory response syndrome) Is this a current diagnosis for this admission?: Yes Plan: Resolved (4) Physical deconditioning Is this a current diagnosis for this admission?: Yes Plan: Needs to see PT and probably need home PT or SNF. (5) Hypernatremia Is this a current diagnosis for this admission?: Yes Plan: Level 154 without symptoms. Likely from large NS load. 1/@ NS begun at 50cc/hr and repeat labs for tomorrow ordered. Has bed on medical floor. Report given to Dr. Kyle. Critical Time Critical Time (minutes): 25 Level of Care: MEDICAL Anticipated discharge: Home with Homehealth Anticipated DC Timeframe: Other -: 1. The care of a critical patient is a dynamic process. This note is a r epresentative synopsis but static in nature. The timeframe for treatments given in order is not necessarily the actual time these treatments may have been done. 2. This patient requires critical care secondary to ongoing requirements for therapy not offered or safe outside the critical care environment. Transfer to a lower level of care will result in altered life or limb morbidity and mortali ty. 3. Multidisciplinary rounds completed. 4. ABCDE bundle addressed.
[2020-04-30] MEDS ORDERED: INSULIN GLARGINE,HUM.REC.ANLOG 1,000 UNIT/10 ML VIAL (PYX) SUBCUT ONE (09:50)
[2020-04-30] MEDS: DOCUSATE SODIUM 100 MG CAPSULE PO SCH (09:54)
[2020-04-30] MEDS: INSULIN GLARGINE,HUM.REC.ANLOG 1,000 UNIT/10 ML VIAL SUBCUT SCH ×2 (09:55→22:06)
[2020-04-30 13:40] LABS: ANION GAP 15 (5-19); BLOOD UREA NITROGEN 35 mg/dL (7-20); CALCIUM 8.6 mg/dL (8.4-10.2); CARBON DIOXIDE 14 mmol/L (22-30); CHLORIDE 118 mmol/L (98-107); GLUCOSE 145 mg/dL (75-110); POTASSIUM 3.8 mmol/L (3.6-5.0)
[2020-04-30] MEDS: 1/2 NORMAL SALINE 1,000 ML IV PRN (17:39)
--- NOTE | 2020-04-30 20:48 | Progress Note ---
Provider Note Provider Note: Patient was transferred from the ICU this morning after being seen by printed forms proofreader. I reviewed his history and labs and assessed him when he will got to the floors. He is stable enough for transfer. Full progress note to follow tomorrow. Please refer to Dr. Velez's notes for assessment and plan.
[2020-05-01] MEDS: HEPARIN SOD (PORCINE) 5,000 UNIT/ML 1 ML VIAL SUBCUT SCH ×3 (05:22→22:06)
[2020-05-01] MEDS: HYDROCORTISONE SOD SUCCINATE INJ/PF 100 MG/2 ML SDV IV SCH ×3 (05:36→22:32)
[2020-05-01 06:21] LABS: ANION GAP 10 (5-19); BLOOD UREA NITROGEN 32 mg/dL (7-20); CALCIUM 8.9 mg/dL (8.4-10.2); CARBON DIOXIDE 21 mmol/L (22-30); CHLORIDE 114 mmol/L (98-107); GLUCOSE 183 mg/dL (75-110); POTASSIUM 3.7 mmol/L (3.6-5.0)
[2020-05-01] MEDS: INSULIN REG, HUMAN 100 UNIT/ML 3 ML VIAL (PYX) SUBCUT SCH ×4 (08:05→22:32)
[2020-05-01] MEDS: DOCUSATE SODIUM 100 MG CAPSULE PO SCH (09:26)
[2020-05-01] MEDS: INSULIN GLARGINE,HUM.REC.ANLOG 1,000 UNIT/10 ML VIAL SUBCUT SCH ×2 (09:26→22:32)
[2020-05-01] MEDS: 1/2 NORMAL SALINE 1,000 ML IV PRN (14:09)
--- NOTE | 2020-05-01 16:20 | PDOC PROGRESS REPORT ---
Subjective Date:: 05/01/20 Subjective:: 05/01/20 Patient was seen and examined at bedside. he was found sitting on a chair. He denied any chest pain, sob, nausea/vomiting. He is alert,awake and oriented. He stated that he has been using his lantus and short acting as was prescribe however he said that he does not take his other medications. He also said that he lives alone and walks with a walker. he is not a very reliable historian. he stated that he slid down on his bed and got too weak to get up on his own, he thinks that he was on the floor for just 8 hrs. He was admitted in the ICU initially from 04/28 to 04/30 due to HHNK with a BG of >600, he had an AG of 28 but he was not acidotic on ABG. He was given IV fluids and was started on an insulin drip which improved his mental status and BG. He was eventually transferred to floors on 04/30/20. Reason For Visit: ALTERED MENTAL STATUS,HYPEROSMOLAR HYPERGLYCEMIC Physical Exam Vital Signs: Temp Pulse Resp BP Pulse Ox 98.3 F 74 17 119/57 L 98 05/01/20 11:01 05/01/20 11:01 05/01/20 11:01 05/01/20 11:01 05/01/20 11:01 Intake & Output 04/30/20 05/01/20 05/02/20 06:59 06:59 06:59 Intake Total 1520 1770 1740 Output Total 1700 Balance -180 1770 1740 Weight 103.1 kg 102.9 kg 102.9 kg General appearance: PRESENT: no acute distress, cooperative Head exam: PRESENT: atraumatic, normocephalic Eye exam: PRESENT: EOMI, PERRLA Mouth exam: PRESENT: moist Neck exam: PRESENT: full ROM Cardiovascular exam: PRESENT: RRR, +S1, +S2 Pulses: PRESENT: +2 pedal pulses bilateral GI/Abdominal exam: PRESENT: normal bowel sounds, soft. ABSENT: rebound, tenderness Rectal exam: PRESENT: normal inspection Extremities exam: PRESENT: full ROM Musculoskeletal exam: PRESENT: full ROM Neurological exam: PRESENT: alert, awake, oriented to person, oriented to place, oriented to time, oriented to situation Psychiatric exam: PRESENT: normal mood Skin exam: PRESENT: normal color Results Laboratory Results: 04/30/20 04:14 05/01/20 05:09 05/01/20 05:09 Sodium 145.3 H Potassium 3.7 Chloride 114 H Carbon Dioxide 21 L Anion Gap 10 BUN 32 H Creatinine 1.26 H Est GFR ( Amer) > 60 Glucose 183 H Calcium 8.9 04/28/20 04/28/20 04/29/20 04:30 04:30 04:07 Creatine Kinase 1004 H Troponin I < 0.012 NT-Pro-B Natriuret Pep 170 H 1210 H 04/30/20 04:14 Creatine Kinase Troponin I NT-Pro-B Natriuret Pep 813 H Impressions: Head CT 04/27/20 18:59 IMPRESSION: Involutional changes with chronic microvascular ischemia. No acute intracranial imaging finding. EVIDENCE OF ACUTE STROKE: NO. Cervical Spine CT 04/27/20 19:00 IMPRESSION: Degenerative disc disease, spondylosis, and limited facet arth ropathy. Chest X-Ray 04/29/20 05:00 IMPRESSION: Low lung volumes with patchy bibasilar opacities, left greater right, similar to prior. 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 (3) Hypernatremia Is this a current diagnosis for this admission?: Yes Plan: Level 154 without symptoms. Likely from large NS load. - improved. Currently 145.3 (4) Physical deconditioning Is this a current diagnosis for this admission?: Yes Plan: - continue PT/OT - discharge planning for possible SNF placement (5) HTN (hypertension) Qualifiers: Hypertension type: essential hypertension Qualified Code(s): I10 - Essential (primary) hypertension Is this a current diagnosis for this admission?: Yes Plan: - on lisinopril at home - resumed (6) HLD (hyperlipidemia) Qualifiers: Hyperlipidemia type: unspecified Qualified Code(s): E78.5 - Hyperlipidemia, unspecified Is this a current diagnosis for this admission?: Yes Plan: - resumed lipitor - Time Time Spent with patient: 25-34 minutes Medications reviewed and adjusted accordingly: Yes Anticipated Discharge Disposition: Shelter Facility Anticipated Discharge Timeframe: within 48 hours
[2020-05-01] MEDS: ATORVASTATIN CALCIUM 40 MG TABLET PO SCH (22:45)
[2020-05-02] MEDS: HEPARIN SOD (PORCINE) 5,000 UNIT/ML 1 ML VIAL SUBCUT SCH ×3 (06:14→21:30)
[2020-05-02] MEDS: HYDROCORTISONE SOD SUCCINATE INJ/PF 100 MG/2 ML SDV IV SCH (06:18)
[2020-05-02] MEDS: INSULIN REG, HUMAN 100 UNIT/ML 3 ML VIAL (PYX) SUBCUT SCH (08:47)
[2020-05-02 09:08] LABS: ALBUMIN 2.9 g/dL (3.5-5.0); ALKALINE PHOSPHATASE 96 U/L (38-126); ANION GAP 12 (5-19); ASPARTATE AMINO TRANSFERASE 39 U/L (17-59); BILIRUBIN,DIRECT 0.3 mg/dL (0.0-0.4); BILIRUBIN,TOTAL 0.9 mg/dL (0.2-1.3); BLOOD UREA NITROGEN 26 mg/dL (7-20); CALCIUM 8.6 mg/dL (8.4-10.2); CARBON DIOXIDE 23 mmol/L (22-30); CHLORIDE 109 mmol/L (98-107); GLUCOSE 136 mg/dL (75-110); TOTAL PROTEIN 6.3 g/dL (6.3-8.2)
[2020-05-02] MEDS: INSULIN GLARGINE,HUM.REC.ANLOG 1,000 UNIT/10 ML VIAL SUBCUT SCH ×2 (09:35→21:33)
[2020-05-02] MEDS: DOCUSATE SODIUM 100 MG CAPSULE PO SCH (09:36)
[2020-05-02] MEDS: 1/2 NORMAL SALINE 1,000 ML IV PRN (09:41)
[2020-05-02] MEDS: POTASSI CL 20 MEQ/50 ML RIDER 20 MEQ/50 ML RTUPB IV SCH ×3 (10:41→19:57)
[2020-05-02] MEDS: INSULIN LISPRO 100 UNIT/ML 3 ML VIAL SUBCUT SCH ×2 (11:42→16:25)
--- NOTE | 2020-05-02 15:20 | PDOC PROGRESS REPORT ---
Subjective Date:: 05/02/20 Subjective:: 05/01/20 Patient was seen and examined at bedside. he was found sitting on a chair. He denied any chest pain, sob, nausea/vomiting. He is alert,awake and oriented. He stated that he has been using his lantus and short acting as was prescribe however he said that he does not take his other medications. He also said that he lives alone and walks with a walker. he is not a very reliable historian. he stated that he slid down on his bed and got too weak to get up on his own, he thinks that he was on the floor for just 8 hrs. He was admitted in the ICU initially from 04/28 to 04/30 due to HHNK with a BG of >600, he had an AG of 28 but he was not acidotic on ABG. He was given IV fluids and was started on an insulin drip which improved his mental status and BG. He was eventually transferred to floors on 04/30/20. 05/02/20 Patient was seen and examined at bedside. No new complains, sitting comfortably at bedside. I stopped the hydrocortisone he was getting from the ICU. I have started him on a basal/bolus regimen as well as he was getting frequent sliding scale correction. Reason For Visit: ALTERED MENTAL STATUS,HYPEROSMOLAR HYPERGLYCEMIC Physical Exam Vital Signs: Temp Pulse Resp BP Pulse Ox 98.0 F 67 16 139/70 H 95 05/02/20 11:07 05/02/20 11:07 05/02/20 11:07 05/02/20 11:07 05/02/20 11:07 Intake & Output 05/01/20 05/02/20 05/03/20 06:59 06:59 06:59 Intake Total 1770 2720 1523 Balance 1770 2720 1523 Weight 102.9 kg 103.4 kg General appearance: PRESENT: no acute distress, cooperative Head exam: PRESENT: atraumatic, normocephalic Eye exam: PRESENT: EOMI, PERRLA Mouth exam: PRESENT: moist Neck exam: PRESENT: full ROM Respiratory exam: PRESENT: clear to auscultation sunitha, symmetrical, unlabored Cardiovascular exam: PRESENT: RRR, +S1, +S2 GI/Abdominal exam: PRESENT: normal bowel sounds, soft. ABSENT: rebound, tenderness Extremities exam: PRESENT: full ROM Musculoskeletal exam: PRESENT: full ROM Neurological exam: PRESENT: alert, awake, oriented to person, oriented to place, oriented to time Psychiatric exam: PRESENT: flat affect Skin exam: PRESENT: normal color Results Laboratory Results: 04/30/20 04:14 05/02/20 08:25 05/02/20 08:25 Sodium 143.9 Potassium 3.0 L* Chloride 109 H Carbon Dioxide 23 Anion Gap 12 BUN 26 H Creatinine 1.08 Est GFR ( Amer) > 60 Glucose 136 H Calcium 8.6 Total Bilirubin 0.9 AST 39 Alkaline Phosphatase 96 Total Protein 6.3 Albumin 2.9 L 04/28/20 04/28/20 04/29/20 04:30 04:30 04:07 Creatine Kinase 1004 H Troponin I < 0.012 NT-Pro-B Natriuret Pep 170 H 1210 H 04/30/20 04:14 Creatine Kinase Troponin I NT-Pro-B Natriuret Pep 813 H Impressions: Head CT 04/27/20 18:59 IMPRESSION: Involutional changes with chronic microvascular ischemia. No acute intracranial imaging finding. EVIDENCE OF ACUTE STROKE: NO. Cervical Spine CT 04/27/20 19:00 IMPRESSION: Degenerative disc disease, spondylosis, and limited facet arthropathy. Chest X-Ray 04/29/20 05:00 IMPRESSION: Low lung volumes with patchy bibasilar opacities, left greater right, similar to prior. 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 (3) Hypernatremia Is this a current diagnosis for this admission?: Yes Plan: Level 154 without symptoms. Likely from large NS load. - improved. Currently 145.3 (4) Physical deconditioning Is this a current diagnosis for this admission?: Yes Plan: - continue PT/OT - discharge planning for possible SNF placement (5) HTN (hypertension) Qualifiers: Hypertension type: essential hypertension Qualified Code(s): I10 - Essential (primary) hypertension Is this a current diagnosis for this admission?: Yes Plan: - on lisinopril at home - resumed (6) HLD (hyperlipidemia) Qualifiers: Hyperlipidemia type: unspecified Qualified Code(s): E78.5 - Hyperlipidemia, unspecified Is this a current diagnosis for this admission?: Yes Plan: - resumed lipitor (7) Hypokalemia Is this a current diagnosis for this admission?: Yes Plan: K 3.0 replaced - will CTM - Time Time Spent with patient: 25-34 minutes Medications reviewed and adjusted accordingly: Yes Anticipated Discharge Disposition: Home with Home Health Anticipated Discharge Timeframe: TBD
[2020-05-02] MEDS: ATORVASTATIN CALCIUM 40 MG TABLET PO SCH (21:33)
[2020-05-03 05:27] LABS: HEMATOCRIT 39.7 % (37.9-51.0); HEMOGLOBIN 13.9 g/dL (13.5-17.0); MEAN CORPUSCULAR HEMOGLOBIN 29.9 pg (27.0-33.4); MEAN CORPUSCULAR HGB CONC 35.1 g/dL (32.0-36.0); MEAN CORPUSCULAR VOLUME 85 fl (80-97); PLATELET COUNT 172 10^3/uL (150-450); RED BLOOD COUNT 4.65 10^6/uL (4.35-5.55); RED CELL DISTRIBUTION WIDTH 15.5 % (11.5-14.0); WHITE BLOOD COUNT 13.6 10^3/uL (4.0-10.5)
[2020-05-03 05:48] LABS: ALBUMIN 2.8 g/dL (3.5-5.0); ALKALINE PHOSPHATASE 92 U/L (38-126); ANION GAP 6 (5-19); ASPARTATE AMINO TRANSFERASE 37 U/L (17-59); BILIRUBIN,DIRECT 0.2 mg/dL (0.0-0.4); BILIRUBIN,TOTAL 0.8 mg/dL (0.2-1.3); BLOOD UREA NITROGEN 21 mg/dL (7-20); CALCIUM 8.4 mg/dL (8.4-10.2); CARBON DIOXIDE 27 mmol/L (22-30); CHLORIDE 107 mmol/L (98-107); POTASSIUM 3.1 mmol/L (3.6-5.0)
[2020-05-03] MEDS: HEPARIN SOD (PORCINE) 5,000 UNIT/ML 1 ML VIAL SUBCUT SCH ×3 (05:55→22:30)
[2020-05-03 06:06] LABS: GLUCOSE 64 mg/dL (75-110)
[2020-05-03 06:23] LABS: ABSOLUTE LYMPHOCYTES# (MANUAL) 4.4 10^3/uL (0.5-4.7); ABSOLUTE MONOCYTES # (MANUAL) 1.6 10^3/uL (0.1-1.4); BASOPHILS % (MANUAL) 0 % (0-2); EOSINOPHILS % (MANUAL) 2 % (0-6); LYMPHOCYTES % (MANUAL) 29 % (13-45); MONOCYTES % (MANUAL) 12 % (3-13); NUCLEATED RED BLOOD CELLS 1 /100 WBC (0); SEGMENTED NEUTROPHILS % (MAN) 54 % (42-78); TOTAL CELLS COUNTED 100
[2020-05-03 06:24] LABS: PLATELET COMMENT ADEQUATE
[2020-05-03 06:25] LABS: ANISOCYTOSIS SLIGHT
[2020-05-03 06:27] LABS: BURR CELLS SLIGHT; POLYCHROMASIA SLIGHT; TARGET CELLS SLIGHT
[2020-05-03] MEDS: INSULIN LISPRO 100 UNIT/ML 3 ML VIAL SUBCUT SCH ×3 (07:39→16:37)
[2020-05-03] MEDS: INSULIN GLARGINE,HUM.REC.ANLOG 1,000 UNIT/10 ML VIAL SUBCUT SCH ×2 (10:17→22:30)
[2020-05-03] MEDS: DOCUSATE SODIUM 100 MG CAPSULE PO SCH (10:17)
[2020-05-03] MEDS: POTASSIUM CHLORIDE 20 MEQ PACKET PO SCH (10:17)
--- NOTE | 2020-05-03 14:17 | PDOC PROGRESS REPORT ---
Subjective Date:: 05/03/20 Subjective:: 05/01/20 Patient was seen and examined at bedside. he was found sitting on a chair. He denied any chest pain, sob, nausea/vomiting. He is alert,awake and oriented. He stated that he has been using his lantus and short acting as was prescribe however he said that he does not take his other medications. He also said that he lives alone and walks with a walker. he is not a very reliable historian. he stated that he slid down on his bed and got too weak to get up on his own, he thinks that he was on the floor for just 8 hrs. He was admitted in the ICU initially from 04/28 to 04/30 due to HHNK with a BG of >600, he had an AG of 28 but he was not acidotic on ABG. He was given IV fluids and was started on an insulin drip which improved his mental status and BG. He was eventually transferred to floors on 04/30/20. 05/02/20 Patient was seen and examined at bedside. No new complains, sitting comfortably at bedside. I stopped the hydrocortisone he was getting from the ICU. I have started him on a basal/bolus regimen as well as he was getting frequent sliding scale correction. 05/03/20 Patient was seen and examined at bedside. Sitting comfortably in the chair. No new complains. BG better controlled. He will need home health. Will discharge tomorrow. Reason For Visit: ALTERED MENTAL STATUS,HYPEROSMOLAR HYPERGLYCEMIC Physical Exam Vital Signs: Temp Pulse Resp BP Pulse Ox 98.6 F 76 18 120/64 90 L 05/03/20 07:57 05/03/20 07:57 05/03/20 07:57 05/03/20 07:57 05/03/20 07:57 Intake & Output 05/02/20 05/03/20 05/04/20 06:59 06:59 06:59 Intake Total 2720 3495 50 Output Total 2120 Balance 2720 1375 50 Weight 103.4 kg 104.5 kg General appearance: PRESENT: no acute distress, cooperative Head exam: PRESENT: atraumatic, normocephalic Eye exam: PRESENT: EOMI, PERRLA Mouth exam: PRESENT: moist Neck exam: PRESENT: full ROM Respiratory exam: PRESENT: clear to auscultation sunitha, symmetrical, unlabored Cardiovascular exam: PRESENT: RRR, +S1, +S2 GI/Abdominal exam: PRESENT: normal bowel sounds, soft. ABSENT: rebound, tenderness Extremities exam: PRESENT: full ROM Musculoskeletal exam: PRESENT: full ROM Neurological exam: PRESENT: alert, awake, oriented to person, oriented to place, oriented to time, oriented to situation Psychiatric exam: PRESENT: normal mood Skin exam: PRESENT: normal color Results Laboratory Results: 05/03/20 05:12 05/03/20 05:12 05/03/20 05/03/20 05:12 05:12 WBC 13.6 H RBC 4.65 Hgb 13.9 Hct 39.7 MCV 85 MCH 29.9 MCHC 35.1 RDW 15.5 H Plt Count 172 Seg Neutrophils % Not Reportable Sodium 140.0 Potassium 3.1 L Chloride 107 Carbon Dioxide 27 Anion Gap 6 BUN 21 H Creatinine 1.05 Est GFR ( Amer) > 60 Glucose 64 L Calcium 8.4 Total Bilirubin 0.8 AST 37 Alkaline Phosphatase 92 Total Protein 6.0 L Albumin 2.8 L 04/27/20 18:58 Blood Blood Culture - Final NO GROWTH IN 5 DAYS 04/27/20 18:23 Blood Blood Culture - Final NO GROWTH IN 5 DAYS 04/28/20 04/28/20 04/29/20 04:30 04:30 04:07 Creatine Kinase 1004 H Troponin I < 0.012 NT-Pro-B Natriuret Pep 170 H 1210 H 04/30/20 04:14 Creatine Kinase Troponin I NT-Pro-B Natriuret Pep 813 H Impressions: Head CT 04/27/20 18:59 IMPRESSION: Involutional changes with chronic microvascular ischemia. No acute intracranial imaging finding. EVIDENCE OF ACUTE STROKE: NO. Cervical Spine CT 04/27/20 19:00 IMPRESSION: Degenerative disc disease, spondylosis, and limited facet arthropathy. Chest X-Ray 04/29/20 05:00 IMPRESSION: Low lung volumes with patchy bibasilar opacities, left greater right, similar to prior. 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 (3) Hypernatremia Is this a current diagnosis for this admission?: Yes Plan: Level 154 without symptoms. Likely from large NS load. - improved. Currently 145.3 (4) Physical deconditioning Is this a current diagnosis for this admission?: Yes Plan: - continue PT/OT - discharge planning for possible SNF placement (5) HTN (hypertension) Qualifiers: Hypertension type: essential hypertension Qualified Code(s): I10 - Essential (primary) hypertension Is this a current diagnosis for this admission?: Yes Plan: - on lisinopril at home - resumed (6) HLD (hyperlipidemia) Qualifiers: Hyperlipidemia type: unspecified Qualified Code(s): E78.5 - Hyperlipidemia, unspecified Is this a current diagnosis for this admission?: Yes Plan: - resumed lipitor (7) Hypokalemia Is this a current diagnosis for this admission?: Yes Plan: K 3.0 replaced - will CTM - Time Time Spent with patient: 15-24 minutes Medications reviewed and adjusted accordingly: Yes Anticipated Discharge Disposition: Home with Home Health Anticipated Discharge Timeframe: within 24 hours
[2020-05-03] MEDS ORDERED: INSULIN GLARGINE,HUM.REC.ANLOG 1,000 UNIT/10 ML VIAL (PYX) SUBCUT ONE (22:26)
[2020-05-03] MEDS: ATORVASTATIN CALCIUM 40 MG TABLET PO SCH (22:30)
[2020-05-04 05:24] LABS: ABSOLUTE EOSINOPHILS # (AUTO) 0.3 10^3/uL (0.0-0.6); ABSOLUTE LYMPHOCYTES (AUTO) 2.4 10^3/uL (0.5-4.7); ABSOLUTE MONOCYTES (AUTO) 1.9 10^3/uL (0.1-1.4); ABSOLUTE NEUT (AUTO) 8.5 10^3/uL (1.7-8.2); BASOPHILS % (AUTO) 0.2 % (0-2); EOSINOPHILS % (AUTO) 2.4 % (0-6); HEMATOCRIT 40.2 % (37.9-51.0); HEMOGLOBIN 13.9 g/dL (13.5-17.0); LYMPHOCYTES % (AUTO) 18.1 % (13-45); MEAN CORPUSCULAR HEMOGLOBIN 29.4 pg (27.0-33.4); MEAN CORPUSCULAR HGB CONC 34.6 g/dL (32.0-36.0); MEAN CORPUSCULAR VOLUME 85 fl (80-97); MONOCYTES % (AUTO) 14.5 % (3-13); PLATELET COUNT 176 10^3/uL (150-450); RED BLOOD COUNT 4.74 10^6/uL (4.35-5.55); RED CELL DISTRIBUTION WIDTH 15.5 % (11.5-14.0); SEGMENTED NEUTROPHILS % (AUTO) 64.8 % (42-78); TOTAL CELLS COUNTED % (AUTO) 100 %; WHITE BLOOD COUNT 13.1 10^3/uL (4.0-10.5)
[2020-05-04 05:48] LABS: ALBUMIN 2.6 g/dL (3.5-5.0); ALKALINE PHOSPHATASE 87 U/L (38-126); ANION GAP 6 (5-19); ASPARTATE AMINO TRANSFERASE 30 U/L (17-59); BILIRUBIN,DIRECT 0.1 mg/dL (0.0-0.4); BILIRUBIN,TOTAL 0.6 mg/dL (0.2-1.3); BLOOD UREA NITROGEN 18 mg/dL (7-20); CALCIUM 8.4 mg/dL (8.4-10.2); CARBON DIOXIDE 28 mmol/L (22-30); CHLORIDE 106 mmol/L (98-107); GLUCOSE 80 mg/dL (75-110); POTASSIUM 3.4 mmol/L (3.6-5.0); TOTAL PROTEIN 5.9 g/dL (6.3-8.2)
[2020-05-04] MEDS: HEPARIN SOD (PORCINE) 5,000 UNIT/ML 1 ML VIAL SUBCUT SCH ×2 (06:25→13:58)
[2020-05-04] MEDS: INSULIN LISPRO 100 UNIT/ML 3 ML VIAL SUBCUT SCH ×2 (07:48→12:08)
[2020-05-04] MEDS ORDERED: POTASSIUM CHLORIDE 10 MEQ TABLET.ER PO ONE (08:30)
[2020-05-04] MEDS: INSULIN GLARGINE,HUM.REC.ANLOG 1,000 UNIT/10 ML VIAL SUBCUT SCH (09:19)
[2020-05-04] MEDS: POTASSIUM CHLORIDE 20 MEQ PACKET PO SCH (09:19)
[2020-05-04] MEDS: DOCUSATE SODIUM 100 MG CAPSULE PO SCH (09:19)
[2020-05-04 15:01] VITALS: BP 110/60
--- NOTE | 2020-05-04 20:13 | PDOC DISCHARGE SUMMARY ---
Impression - Admit/DC Date/PCP Admission Date/Primary Care Provider: 04/27/20 23:05 CYNDI MORGAN MD Discharge Date: 05/04/20 - Discharge Diagnosis (1) Diabetes mellitus with hyperosmolarity without hyperglycemic hyperosmolar nonketotic coma Is this a current diagnosis for this admission?: Yes (2) Altered mental status Is this a current diagnosis for this admission?: Yes (3) Hypernatremia Is this a current diagnosis for this admission?: Yes (4) Physical deconditioning Is this a current diagnosis for this admission?: Yes (5) HTN (hypertension) Is this a current diagnosis for this admission?: Yes (6) HLD (hyperlipidemia) Is this a current diagnosis for this admission?: Yes (7) Hypokalemia Is this a current diagnosis for this admission?: Yes - Assessment Summary: (1) Diabetes mellitus with hyperosmolarity without hyperglycemic hyperosmolar nonketotic coma Is this a current diagnosis for this admission?: Yes Plan: - came in due to AMS and high blood BG >550 - elevated AG, minimal ketones, non acidotic on ABG, per ICU it was more like HONK - was briefly on Insulin drip now transitioned to Lantus 20 u BID and with meals insulin - A1C 14 - will continue current lantus and start him on with meals insulin scheduled - clinical educator - continue accucheck and hypoglycemia protocol - plan for discharge tomorrow with home health (2) Altered mental status Qualifiers: Altered mental status type: disorientation Qualified Code(s): R41.0 - Disorientation, unspecified Is this a current diagnosis for this admission?: Yes Plan: His mental status seems to be at or close to baseline. (3) Hypernatremia Is this a current diagnosis for this admission?: Yes Plan: Level 154 without symptoms. Likely from large NS load. - improved. Currently 145.3 (4) Physical deconditioning Is this a current diagnosis for this admission?: Yes Plan: - continue PT/OT - discharge planning for possible SNF placement (5) HTN (hypertension) Qualifiers: Hypertension type: essential hypertension Qualified Code(s): I10 - Essential (primary) hypertension Is this a current diagnosis for this admission?: Yes Plan: - on lisinopril at home - resumed (6) HLD (hyperlipidemia) Qualifiers: Hyperlipidemia type: unspecified Qualified Code(s): E78.5 - Hyperlipidemia, unspecified Is this a current diagnosis for this admission?: Yes Plan: - resumed lipitor (7) Hypokalemia Is this a current diagnosis for this admission?: Yes Plan: K 3.0 replaced - will CTM - Additional Information Resuscitation Status: Full Code Discharge Diet: Diabetic Discharge Activity: Activity As Tolerated Referrals: NIGHAT FONSECA MD [ACTIVE STAFF] - 05/11/20 2:15 pm Prescriptions: Insulin Lispro [Humalog Kwikpen U-100] 5 unit SQ TID 30 Days #2 Insulin Glargine,Hum.rec.anlog [Lantus Insulin 100 Unit/mL Insulin Pen] 20 units SQ BID 30 Days #2 Potassium Chloride [Potassium Chloride 20 Meq Packet] 10 meq PO DAILY 30 Days #30 packet Home Medications: Atorvastatin Calcium [Lipitor 40 mg Tablet] 40 mg PO DAILY 04/28/20 Dapagliflozin Propanediol [Farxiga] 10 mg PO DAILY 04/28/20 Sitagliptin Phos/Metformin HCl [Janumet Xr 50-1,000 mg Tablet] 1 each PO BID 04/28/20 Insulin Glargine,Hum.rec.anlog [Lantus Insulin 100 Unit/mL Insulin Pen] 20 units SQ BID 30 Days #2 05/04/20 Insulin Lispro [Humalog Kwikpen U-100] 5 unit SQ TID 30 Days #2 05/04/20 Potassium Chloride [Potassium Chloride 20 Meq Packet] 10 meq PO DAILY 30 Days #30 packet 05/04/20 History of Present Illiness History of Present Illness: VERONICA SOLORIO is a 69 year old male, history of diabetes, hypertension, who was admitted in the ICU April 28, 2020 due to altered mental status, elevated blood glucose. e stated that he has been using his lantus and short acting as was prescribe however he said that he does not take his other medications. He also said that he lives alone and walks with a walker. he is not a very reliable historian. he stated that he slid down on his bed and got too weak to get up on his own, he thinks that he was on the floor for just 8 hrs. He was transferred out of the ICU after 3 days. He was briefly on insulin drip. His mental status improved with IV fluids and insulin and he was transferred out of the ICU on May 02, 2020. Hospital Course Hospital Course: 05/01/20 Patient was seen and examined at bedside. he was found sitting on a chair. He denied any chest pain, sob, nausea/vomiting. He is alert,awake and oriented. He stated that he has been using his lantus and short acting as was prescribe however he said that he does not take his other medications. He also said that he lives alone and walks with a walker. he is not a very reliable historian. he stated that he slid down on his bed and got too weak to get up on his own, he thinks that he was on the floor for just 8 hrs. He was admitted in the ICU initially from 04/28 to 04/30 due to HHNK with a BG of >600, he had an AG of 28 but he was not acidotic on ABG. He was given IV fluids and was started on an insulin drip which improved his mental status and BG. He was eventually tr ansferred to floors on 04/30/20. 05/02/20 Patient was seen and examined at bedside. No new complains, sitting comfortably at bedside. I stopped the hydrocortisone he was getting from the ICU. I have started him on a basal/bolus regimen as well as he was getting frequent sliding scale correction. 05/03/20 Patient was seen and examined at bedside. Sitting comfortably in the chair. No new complains. BG better controlled. He will need home health. Will discharge tomorrow. 05/04/20 his mental status status went back to baseline. And his blood glucose was well controlled with 20 units of Lantus twice a day, 5 units of Humalog with meals. He was discharged on this regimen and he was advised to drink plenty of water as well. He was discharged with home health and was advised to follow-up with his primary care. Physical Exam Vital Signs: Temp Pulse Resp BP Pulse Ox 97.6 F 79 18 110/60 92 05/04/20 15:00 05/04/20 15:00 05/04/20 15:00 05/04/20 15:00 05/04/20 15:00 Intake & Output 05/03/20 05/04/20 05/05/20 06:59 06:59 06:59 Intake Total 3495 1150 600 Output Total 2120 1225 450 Balance 1375 -75 150 Weight 104.5 kg 107.3 kg 99.7 kg General appearance: PRESENT: no acute distress, cooperative Head exam: PRESENT: atraumatic, normocephalic Eye exam: PRESENT: EOMI, PERRLA Mouth exam: PRESENT: moist Neck exam: PRESENT: full ROM Respiratory exam: PRESENT: clear to auscultation sunitha, symmetrical, unlabored Cardiovascular exam: PRESENT: RRR, +S1, +S2 Pulses: PRESENT: +2 pedal pulses bilateral GI/Abdominal exam: PRESENT: normal bowel sounds, soft. ABSENT: rebound, tenderness Extremities exam: PRESENT: full ROM Musculoskeletal exam: PRESENT: full ROM Neurological exam: PRESENT: alert, awake, oriented to person, oriented to place, oriented to time Psychiatric exam: PRESENT: normal mood Skin exam: PRESENT: normal color Results Laboratory Results: WBC 13.1 10^3/uL (4.0-10.5) H 05/04/20 05:08 RBC 4.74 10^6/uL (4.35-5.55) 05/04/20 05:08 Hgb 13.9 g/dL (13.5-17.0) 05/04/20 05:08 Hct 40.2 % (37.9-51.0) 05/04/20 05:08 MCV 85 fl (80-97) 05/04/20 05:08 MCH 29.4 pg (27.0-33.4) 05/04/20 05:08 MCHC 34.6 g/dL (32.0-36.0) 05/04/20 05:08 RDW 15.5 % (11.5-14.0) H 05/04/20 05:08 Plt Count 176 10^3/uL (150-450) 05/04/20 05:08 Lymph % (Auto) 18.1 % (13-45) 05/04/20 05:08 [place] % (Auto) 14.5 % (3-13) H 05/04/20 05:08 Eos % (Auto) 2.4 % (0-6) 05/04/20 05:08 Baso % (Auto) 0.2 % (0-2) 05/04/20 05:08 Absolute Neuts (auto) 8.5 10^3/uL (1.7-8.2) H 05/04/20 05:08 Absolute Lymphs (auto) 2.4 10^3/uL (0.5-4.7) 05/04/20 05:08 Absolute Monos (auto) 1.9 10^3/uL (0.1-1.4) H 05/04/20 05:08 Absolute Eos (auto) 0.3 10^3/uL (0.0-0.6) 05/04/20 05:08 Absolute Basos (auto) 0.0 10^3/uL (0.0-0.2) 05/04/20 05:08 Total Counted 100 05/03/20 05:12 Seg Neutrophils % 64.8 % (42-78) 05/04/20 05:08 Seg Neuts % (Manual) 54 % (42-78) 05/03/20 05:12 Band Neutrophils % 2 % (3-5) L 04/27/20 17:41 Lymphocytes % (Manual) 29 % (13-45) 05/03/20 05:12 Atypical Lymphs % 3 % (0) 05/03/20 05:12 Monocytes % (Manual) 12 % (3-13) 05/03/20 05:12 Eosinophils % (Manual) 2 % (0-6) 05/03/20 05:12 Basophils % (Manual) 0 % (0-2) 05/03/20 05:12 Metamyelocytes % 1 % (0-1) 04/27/20 17:41 Abs Neuts (Manual) 7.3 10^3/uL (1.7-8.2) 05/03/20 05:12 Abs Lymphs (Manual) 4.4 10^3/uL (0.5-4.7) 05/03/20 05:12 Abs Monocytes (Manual) 1.6 10^3/uL (0.1-1.4) H 05/03/20 05:12 Absolute Eos (Manual) 0.3 10^3/uL (0.0-0.6) 05/03/20 05:12 Abs Basophils (Manual) 0.0 10^3/uL (0.0-0.2) 05/03/20 05:12 Nucleated RBCs 1 /100 WBC (0) 05/03/20 05:12 Platelet Comment ADEQUATE 05/03/20 05:12 Polychromasia SLIGHT 05/03/20 05:12 Anisocytosis SLIGHT 05/03/20 05:12 Target Cells SLIGHT 05/03/20 05:12 Celestine Cells SLIGHT 05/03/20 05:12 Carbonic Acid 0.81 mmol/L (1.05-1.35) L 04/29/20 05:05 HCO3/H2CO3 Ratio 15:1 04/29/20 05:05 ABG pH 7.30 (7.35-7.45) L 04/29/20 05:05 ABG pCO2 26.9 mmHg (35-45) L 04/29/20 05:05 ABG pO2 74.2 mmHg (80-100) L 04/29/20 05:05 ABG HCO3 12.9 mmol/L (20-24) L 04/29/20 05:05 ABG Total CO2 13.7 mmol/L (23-27) L 04/29/20 05:05 ABG O2 Saturation 93.8 % (94-98) L 04/29/20 05:05 ABG Base Excess -11.8 mmol/L 04/29/20 05:05 VBG pH 7.18 (7.30-7.42) L* 04/27/20 17:41 VBG pCO2 41.6 mmHg (35-63) 04/27/20 17:41 VBG HCO3 15.1 mmol/L (20-32) L 04/27/20 17:41 VBG Base Excess -12.9 mmol/L 04/27/20 17:41 FiO2 2L NC 04/29/20 05:05 Sodium 139.6 mmol/L (137-145) 05/04/20 05:08 Potassium 3.4 mmol/L (3.6-5.0) L 05/04/20 05:08 Chloride 106 mmol/L (98-107) 05/04/20 05:08 Carbon Dioxide 28 mmol/L (22-30) 05/04/20 05:08 Anion Gap 6 (5-19) 05/04/20 05:08 BUN 18 mg/dL (7-20) 05/04/20 05:08 Creatinine 1.01 mg/dL (0.52-1.25) 05/04/20 05:08 Est GFR ( Amer) > 60 (>60) 05/04/20 05:08 Est GFR (MDRD) Non-Af > 60 (>60) 05/04/20 05:08 Glucose 80 mg/dL (75-110) 05/04/20 05:08 POC Glucose 164 mg/dL (70-110) H 05/04/20 15:19 Hemoglobin A1c % < 14.0 % (4.7-6.0) H 04/29/20 04:07 Lactic Acid 2.2 mmol/L (0.7-2.1) H 04/28/20 14:23 Calcium 8.4 mg/dL (8.4-10.2) 05/04/20 05:08 Magnesium 2.7 mg/dL (1.6-2.3) H 04/30/20 04:14 Total Bilirubin 0.6 mg/dL (0.2-1.3) 05/04/20 05:08 Direct Bilirubin 0.1 mg/dL (0.0-0.4) 05/04/20 05:08 Neonat Total Bilirubin Not Reportable 05/04/20 05:08 Neonat Direct Bilirubin Not Reportable 05/04/20 05:08 Neonat Indirect Bili Not Reportable 05/04/20 05:08 AST 30 U/L (17-59) 05/04/20 05:08 ALT 27 U/L (<50) 05/04/20 05:08 Alkaline Phosphatase 87 U/L (38-126) 05/04/20 05:08 Creatine Kinase 1004 U/L (55-170) H 04/28/20 04:30 Troponin I < 0.012 ng/mL 04/28/20 04:30 NT-Pro-B Natriuret Pep 813 pg/mL (<125) H 04/30/20 04:14 Total Protein 5.9 g/dL (6.3-8.2) L 05/04/20 05:08 Albumin 2.6 g/dL (3.5-5.0) L 05/04/20 05:08 Procalcitonin 0.38 ng/mL (0.00-0.08) H 04/27/20 17:55 Random Cortisol 37.60 ug/dL (None Established) 04/28/20 10:10 Urine Color YELLOW 04/27/20 18:50 Urine Appearance SLIGHTLY-CLOUDY 04/27/20 18:50 Urine pH 5.0 (5.0-9.0) 04/27/20 18:50 Ur Specific [place] 1.023 04/27/20 18:50 Urine Protein 30 mg/dL (NEGATIVE) H 04/27/20 18:50 Urine Glucose (UA) >=500 mg/dL (NEGATIVE) H 04/27/20 18:50 Urine Ketones TRACE mg/dL (NEGATIVE) H 04/27/20 18:50 Urine Blood SMALL (NEGATIVE) H 04/27/20 18:50 Urine Nitrite NEGATIVE (NEGATIVE) 04/27/20 18:50 Urine Bilirubin NEGATIVE (NEGATIVE) 04/27/20 18:50 Urine Urobilinogen NEGATIVE mg/dL (<2.0) 04/27/20 18:50 Ur Leukocyte Esterase NEGATIVE (NEGATIVE) 04/27/20 18:50 Urine WBC (Auto) 1 /HPF 04/27/20 18:50 Urine RBC (Auto) 0 /HPF 04/27/20 18:50 U Hyaline Cast (Auto) 5 /LPF 04/27/20 18:50 Urine Bacteria (Auto) TRACE /HPF 04/27/20 18:50 Squamous Epi Cells Auto <1 /HPF 04/27/20 18:50 Urine Mucus (Auto) RARE /LPF 04/27/20 18:50 Urine Ascorbic Acid NEGATIVE (NEGATIVE) 04/27/20 18:50 04/28/20 04/29/20 04/30/20 04:30 04:07 04:14 Troponin I < 0.012 NT-Pro-B Natriuret Pep 170 H 1210 H 813 H Impressions: Chest X-Ray 04/27/20 17:32 IMPRESSION: 1. Low lung volumes limits the examination. No acute pulmonary findings. Head CT 04/27/20 18:59 IMPRESSION: Involutional changes with chronic microvascular ischemia. No acute intracranial imaging finding. EVIDENCE OF ACUTE STROKE: NO. Cervical Spine CT 04/27/20 19:00 IMPRESSION: Degenerative disc disease, spondylosis, and limited facet arthropathy. Chest X-Ray 04/28/20 04:00 IMPRESSION: Patchy bilateral airspace disease Chest X-Ray 04/29/20 05:00 IMPRESSION: Low lung volumes with patchy bibasilar opacities, left greater right, similar to prior. Plan Plan of Treatment: Continue insulin at home and I have repeatedly told him his new dose of insulin. Also advised him to drink plenty of water and to avoid high carb and sugar at food. -advised to follow-up with primary care Time Spent: Less than 30 Minutes Stroke Is this a Stroke Patient?: No Acute Heart Failure Is this a Heart Failure Patient?: No
== END 2020-05-04 16:04 | disposition home health service (06) | DRG 638 ==
LOC: ER 17:14 → EH 23:05 → ICU 04-28 00:17 → 4W 04-30 08:50
PROVIDERS: ADMIT Anesthesiology; ATTEND Internal Medicine
PROC: 06HM33Z Insertion of Infusion Device into Right Femoral Vein, Percutaneous Approach (ICD-10-PCS; principal; 2020-04-27)
PROC: 3E02340 Introduction of Influenza Vaccine into Muscle, Percutaneous Approach (ICD-10-PCS; 2020-05-04)
DX: E11.00 Type 2 diabetes mellitus with hyperosmolarity without nonketotic hyperglycemic-hyperosmolar coma (NKHHC) (principal); E87.0 Hyperosmolality and hypernatremia; R65.10 Systemic inflammatory response syndrome (SIRS) of non-infectious origin without acute organ dysfunction; E78.5 Hyperlipidemia, unspecified; E87.6 Hypokalemia; R68.0 Hypothermia, not associated with low environmental temperature; I10 Essential (primary) hypertension; Z60.2 Problems related to living alone; Z79.82 Long term (current) use of aspirin; Z79.899 Other long term (current) drug therapy; Z79.4 Long term (current) use of insulin; Z23 Encounter for immunization
CPT/HCPCS: 36415; 70450; 71045; 72125; 80048; 80053; 81001; 82533; 82550; 82803; 82962; 83036; 83605; 83735; 83880; 84145; 84484; 85025; 85027; 87040; 87070; 90471; 90686; 99221; 99283; 99291; C9113; G0008; J0696; J1630; J1644; J1720; J1815; J3370; J3480; J3490; J7030; J7060

== ENCOUNTER 2020-05-05 16:30 | Emergency (ER) | payer OTHER, MEDICARE ==
[2020-05-05 18:36] LABS: ABSOLUTE EOSINOPHILS # (AUTO) 0.2 10^3/uL (0.0-0.6); ABSOLUTE LYMPHOCYTES (AUTO) 1.6 10^3/uL (0.5-4.7); ABSOLUTE MONOCYTES (AUTO) 1.6 10^3/uL (0.1-1.4); ABSOLUTE NEUT (AUTO) 7.7 10^3/uL (1.7-8.2); BASOPHILS % (AUTO) 0.1 % (0-2); EOSINOPHILS % (AUTO) 1.5 % (0-6); HEMATOCRIT 39.7 % (37.9-51.0); HEMOGLOBIN 13.4 g/dL (13.5-17.0); LYMPHOCYTES % (AUTO) 14.4 % (13-45); MEAN CORPUSCULAR HEMOGLOBIN 29.4 pg (27.0-33.4); MEAN CORPUSCULAR HGB CONC 33.8 g/dL (32.0-36.0); MEAN CORPUSCULAR VOLUME 87 fl (80-97); MONOCYTES % (AUTO) 14.6 % (3-13); PLATELET COUNT 208 10^3/uL (150-450); RED BLOOD COUNT 4.56 10^6/uL (4.35-5.55); RED CELL DISTRIBUTION WIDTH 15.5 % (11.5-14.0); SEGMENTED NEUTROPHILS % (AUTO) 69.4 % (42-78); TOTAL CELLS COUNTED % (AUTO) 100 %; WHITE BLOOD COUNT 11.1 10^3/uL (4.0-10.5)
[2020-05-05 18:48] LABS: ALBUMIN 2.9 g/dL (3.5-5.0); ALKALINE PHOSPHATASE 96 U/L (38-126); ANION GAP 8 (5-19); ASPARTATE AMINO TRANSFERASE 29 U/L (17-59); BILIRUBIN,DIRECT 0.3 mg/dL (0.0-0.4); BILIRUBIN,TOTAL 0.6 mg/dL (0.2-1.3); BLOOD UREA NITROGEN 15 mg/dL (7-20); CALCIUM 8.7 mg/dL (8.4-10.2); CARBON DIOXIDE 32 mmol/L (22-30); CHLORIDE 99 mmol/L (98-107); GLUCOSE 326 mg/dL (75-110); POTASSIUM 3.9 mmol/L (3.6-5.0); TOTAL PROTEIN 6.1 g/dL (6.3-8.2)
[2020-05-05 19:01] LABS: APPEARANCE,URINE CLEAR; BILIRUBIN,URINE NEGATIVE (NEGATIVE); COLOR,URINE YELLOW; GLUCOSE, URINE >=500 mg/dL (NEGATIVE); KETONES,URINE TRACE mg/dL (NEGATIVE); LEUKOCYTE ESTERASE,URINE NEGATIVE (NEGATIVE); NITRITE,URINE NEGATIVE (NEGATIVE); PROTEIN,URINE NEGATIVE (NEGATIVE); URINE SPECIFIC GRAVITY 1.032; UROBILINOGEN,URINE NEGATIVE mg/dL (<2.0)
--- NOTE | 2020-05-05 19:49 | ER Document Report ---
ED General - General Chief Complaint: High Blood Sugar Stated Complaint: BLOOD SUGAR ISSUES Time Seen by Provider: 05/05/20 17:49 - HPI Notes: Patient is a 69-year-old male brought in the emergency department for evaluation by EMS. Evidently the patient was discharged from the hospital yesterday after being admitted with altered mental status and elevated glucose. He was sent home with home health. Home health evaluated him, after having seen him several months ago, and was concerned that he was unable to care for himself. I asked the patient what he done since discharge. He states that he has not done anything, has been in his wheelchair the entire time. He states that he has not moved out of it. He has been unable to do anything without assistance, and he becomes very angry. He states to me that he should not of been discharged, and needs to be sent to a SNF/assisted living facility. - Related Data Allergies/Adverse Reactions: No Known Allergies Allergy (Verified 10/02/19 07:14) Home Medications: Atorvastatin, Farxiga, Janumet XR, Lantus, lispro, potassium Past Medical History - General Information source: Patient - Social History Smoking Status: Former Smoker Family History: None, Reviewed & Not Pertinent - Past Medical History Cardiac Medical History: Reports: Hx Congestive Heart Failure, Hx Hypertension Pulmonary Medical History: Reports: Hx COPD Endocrine Medical History: Reports: Hx Diabetes Mellitus Type 2 Psychiatric Medical History: Reports: Hx Depression Review of Systems - Review of Systems Constitutional: See HPI EENT: No symptoms reported Cardiovascular: No symptoms reported Respiratory: No symptoms reported Gastrointestinal: No symptoms reported Genitourinary: No symptoms reported Musculoskeletal: No symptoms reported Skin: No symptoms reported Neurological/Psychological: No symptoms reported Physical Exam - Vital signs Vitals: Resp Pulse Ox 14 96 05/05/20 16:45 05/05/20 16:45 - Notes Notes: Is a 69-year-old male who appears stated age, no acute distress. Vital signs reviewed, please refer to chart. Head is normocephalic, atraumatic. Pupils equal round, reactive to light. Neck is supple without meningismus. Heart is regular rate and rhythm. Lungs are clear to auscultation bilaterally. Abdomen is soft, nontender, normoactive bowel sounds throughout. Extremities without cyanosis, clubbing. Posterior calves are nontender. 1+ pitting edema at the ankles bilaterally. Peripheral pulses are equal. Skin is warm and dry. Patient is awake, alert, exhibits generalized weakness, but neurological exam is nonfocal. Course - Re-evaluation Re-evalutation: 05/05/20 19:54 Patient presents to the emergency department for evaluation. He was actually seen by case management prior to them leaving for the day. Laboratory investigations were obtained and found to be largely unremarkable with the exception of some mild hyperglycemia. The patient admitted he had some oatmeal and did not take his regular insulin today. At this point, the patient is absolutely adamant that he cannot be safe at home, I explained and he does not meet any admission criteria and he will have to stay in the emergency department as a social hold. He voiced understanding. We will place orders for regular me dications and official case management consult. - Vital Signs Vital signs: Temp Pulse Resp BP Pulse Ox 98.2 F 14 153/79 H 94 05/06/20 08:30 05/06/20 09:30 05/06/20 09:30 05/06/20 09:30 - Laboratory Results Result Diagrams: 05/05/20 18:03 05/05/20 18:03 Laboratory Results Interpreted: 05/05/20 05/05/20 05/05/20 18:02 18:03 18:03 WBC 11.1 H Hgb 13.4 L RDW 15.5 H [place] % (Auto) 14.6 H Absolute Monos (auto) 1.6 H Carbon Dioxide 32 H Glucose 326 H POC Glucose Total Protein 6.1 L Albumin 2.9 L Urine Glucose (UA) >=500 H Urine Ketones TRACE H 05/05/20 05/06/20 05/06/20 21:35 09:21 12:17 WBC Hgb RDW [place] % (Auto) Absolute Monos (auto) Carbon Dioxide Glucose POC Glucose 297 H 195 H 222 H Total Protein Albumin Urine Glucose (UA) Urine Ketones Critical Laboratory Results Reviewed: No Critical Results - Radiology Results Critical Radiology Results Reviewed: No Critical Results Discharge - Discharge Clinical Impression: Debility, Generalized weakness Condition: Stable Disposition: OTHER
[2020-05-05] MEDS: INSULIN GLARGINE,HUM.REC.ANLOG 1,000 UNIT/10 ML VIAL SUBCUT SCH (21:38)
[2020-05-05] MEDS: ATORVASTATIN CALCIUM 40 MG TABLET PO SCH (21:39)
[2020-05-06] MEDS ORDERED: TUBERCULIN,PURIF.PROT.DERIV. 5 TU/0.1 ML TEST 1 ML VIAL ID ONE ×2 (09:10→17:00)
[2020-05-06] MEDS ORDERED: INSULIN LISPRO 100 UNIT/ML 3 ML VIAL ONE (09:31)
[2020-05-06] MEDS: SITAGLIPTIN PHOSPHATE 50 MG TABLET PO SCH ×2 (09:36→18:08)
[2020-05-06] MEDS: POTASSIUM CHLORIDE 20 MEQ PACKET PO SCH (09:37)
[2020-05-06] MEDS: INSULIN LISPRO 100 UNIT/ML 3 ML VIAL SUBCUT SCH ×3 (09:38→18:08)
[2020-05-06] MEDS: METFORMIN HCL 500 MG TABLET PO SCH ×2 (09:39→18:08)
[2020-05-06] MEDS: INSULIN GLARGINE,HUM.REC.ANLOG 1,000 UNIT/10 ML VIAL SUBCUT SCH ×2 (12:30→23:50)
--- NOTE | 2020-05-06 16:42 | ER Document Report ---
Doctor's Note Notes: 05/06/20 16:39 Patient seen today and examined. Patient was sitting eating lunch without complaint. I informed patient that we are going to try and arrange placement for him and that we needed to obtain a PPD and a Covid test to do this. Patient stated that he did not want those test done and that he no longer wanted to be placed and that he wanted to go back home. I did speak with the foster care social worker who is arranging home health so that the patient will be safe to go back home. Patient skin was warm and dry. Lungs were clear to auscultation. Heart was regular.
[2020-05-06] MEDS: ATORVASTATIN CALCIUM 40 MG TABLET PO SCH (23:50)
[2020-05-07] MEDS: INSULIN LISPRO 100 UNIT/ML 3 ML VIAL SUBCUT SCH ×2 (08:09→12:57)
[2020-05-07] MEDS: METFORMIN HCL 500 MG TABLET PO SCH (08:10)
[2020-05-07] MEDS: SITAGLIPTIN PHOSPHATE 50 MG TABLET PO SCH (10:43)
[2020-05-07] MEDS: INSULIN GLARGINE,HUM.REC.ANLOG 1,000 UNIT/10 ML VIAL SUBCUT SCH (10:43)
[2020-05-07] MEDS: POTASSIUM CHLORIDE 20 MEQ PACKET PO SCH (10:43)
[2020-05-07 14:18] VITALS: BP 117/55
== END 2020-05-07 14:18 | disposition other institution (70) ==
LOC: ER 16:30
DX: R53.1 Weakness (principal); R53.81 Other malaise; E11.9 Type 2 diabetes mellitus without complications; J44.9 Chronic obstructive pulmonary disease, unspecified; I11.0 Hypertensive heart disease with heart failure; Z79.4 Long term (current) use of insulin
CPT/HCPCS: 99284; 36415; 82962; 85025; 80053; 81001; J1815 ×5; J3490 ×2